=== PATIENT | male | born 1985 | race Caucasian/White ===

== ENCOUNTER 2016-11-30 21:17 | Emergency (ER) | payer OTHER ==
[~2016-11-30] VITALS: Ht 182.9 cm; Wt 102.9 kg
[~2016-11-30 21:17] MED LIST: HYDR-5688 PO; IBUP-1050 PO; KLN5X PO; TRAM-10 PO; WLLSR150 PO
[2016-11-30 21:20] VITALS: Ht 182.9 cm; Wt 102.9 kg
[2016-11-30] MEDS ORDERED: SODIUM CHLORIDE 0.9% 1000ML 2,000 ML IV STA (22:33)
[2016-11-30] MEDS ORDERED: ACET-1311 PO (22:40)
[2016-11-30] MEDS ORDERED: ONDANSETRON INJ 2 MG/ML 2 ML VIAL IV STA (22:45)
--- NOTE | 2016-11-30 22:56 | DIAGNOSTIC IMAGING REPORT ---
CHEST ONE VIEW PORTABLE CLINICAL HISTORY: Weakness, fever. Cold sweats. COMPARISON STUDY: 05/15/2016 FINDINGS: The heart is borderline enlarged. There are bibasilar opacities likely atelectatic although an inflammatory process could appear similar. There are postsurgical changes in the cervical spine. There are no pleural effusions there is no failure.[ IMPRESSION: Bibasilar opacities, likely atelectatic. If symptoms persist, a follow-up PA and lateral study is recommended. Electronically signed by: Chad Ricketts M.D. 11/30/2016 10:54 PM Dictated Date/Time: 11/30/2016 10:53 PM
[2016-11-30 22:59] VITALS: O2SAT 98
[2016-11-30] MEDS ORDERED: OPTIRAY 320 IV PRN (23:00)
[2016-11-30 23:01] LABS: URINE APPEARANCE CLEAR (CLEAR); URINE BILIRUBIN NEG (NEG); URINE COLOR YELLOW; URINE NITRITE NEG (NEG); URINE PH >= 9.0 (4.5-7.5); UROBILINOGEN NEG (NEG)
[2016-11-30 23:04] LABS: MANUAL MICROSCOPIC REQUIRED? NO; REVIEW REQ? NO
[2016-11-30 23:15] LABS: BASO % 0.3 %; BASO ABS # 0.03 K/uL (0-0.2); COMPLETE YES; HEMATOCRIT 43.3 % (42-52); IG% 0.2 %; LYMPH % 32.2 %; LYMPH ABS # 2.97 K/uL (1.2-3.4); MEAN CELL VOLUME 90.8 fL (80-100); MEAN CORPUSCULAR HEMOGLOBIN 31.7 pg (25-34); MEAN CORPUSCULAR HGB CONC 34.9 g/dl (32-36); MEAN PLATELET VOLUME 10.4 fL (7.4-10.4); MONO % 5.2 %; NEUT % 56.1 %; PLATELET COUNT 263 K/uL (130-400); RED BLOOD COUNT 4.77 M/uL (4.7-6.1); WHITE BLOOD COUNT 9.22 K/uL (4.8-10.8)
[2016-11-30 23:22] LABS: ISTAT CREATININE 0.8 mg/dl (0.6-1.3); ISTAT IONIZED CALCIUM 1.19 mmol/l (1.12-1.32)
[2016-11-30 23:38] LABS: ALT/SGPT 25 U/L (12-78); AST/SGOT 12 U/L (15-37); BLOOD UREA NITROGEN 9 mg/dl (7-18); BUN/CREATININE RATIO 10.2 (10-20); CALCIUM 9.3 mg/dl (8.5-10.1); CARBON DIOXIDE 28 mmol/L (21-32); CHLORIDE 104 mmol/L (98-107); CREATININE 0.86 mg/dl (0.60-1.40); GLUCOSE 81 mg/dl (70-99); MAGNESIUM 2.3 mg/dl (1.8-2.4); POTASSIUM 4.2 mmol/L (3.5-5.1); SODIUM 141 mmol/L (136-145)
[2016-11-30 23:41] LABS: ALKALINE PHOSPHATASE 69 U/L (45-117)
--- NOTE | 2016-12-01 00:15 | EMERGENCY ROOM VISIT NOTE ---
ED Visit Note First contact with patient: 22:20
[2016-12-01] MEDS ORDERED: KETOROLAC TROMETHAMINE 30 MG/ML VIAL IV STA (00:21)
[2016-12-01 00:32] VITALS: BP 149/91; PULSE 88; TEMP 36.9; O2SAT 98
--- NOTE | 2016-12-01 01:01 | EMERGENCY ROOM VISIT NOTE ---
History Report prepared by Lalito: Alie Roque Under the Supervision of: Aravind ObrienO. First contact with patient: 22:20 Chief Complaint: OTHER COMPLAINT Stated Complaint: FEVER,COLD SWEATS, COMPLETELY OUT OF IT History of Present Illness The patient is a 30 year old male who presents to the Emergency Room with complaints of worsening weakness for the past couple of days. He reports feeling disoriented and tired. His states that he is holding onto cottrell to stay upright when he walks and he is falling asleep standing up. The patient reports stabbing abdominal pain, nausea, and cold sweats. Yesterday he started experiencing burning and pain with urination. He has a history of UTIs but states that this feels different. Pt denies rhinorrhea, sore throat, headache, fevers, cough, chest pain, shortness of breath, vomiting, diarrhea, melena, and penile discharge. The patient sees a psychiatrist and missed his appointment in October. As a result he has run out of his prescriptions and has not taken his Wellbutrin or Klonopin at all this month. He has an appointment in 4 days with his psychiatrist. He denies SI or HI. Source of History: patient, spouse/significant other Onset: a coupld of days ago Position: other (global) Quality: other (weakness) Timing: worsening Modifying Factors (Worsening): other (not taking medications) Associated Symptoms: + abdominal pain, + fatigue, + nausea, + urinary symptoms, No SOB, No chest pain, No cough, No diarrhea, No fevers, No headache, No melena, No sorethroat, No vomiting Note: Pt feels disoriented. Pt denies SI or HI. Review of Systems See HPI for pertinent positives & negatives. A total of 10 systems reviewed and were otherwise negative. Past Medical & Surgical Medical Problems: (1) ANXIETY STATE NOS (2) ASTHMA, UNSPECIFIED, W (ACUTE) EXACERBATION (3) Bipolar II disorder (4) Chronic low back pain (5) Disc degeneration (6) DRUG ABUSE NEC-UNSPEC (7) LUMBAGO (8) POSTTRAUMATIC STRESS DISORDER (9) TOBACCO USE DISORDER Family History FH: cancer FH: lung disease Hypertension Social History Smoking Status: Current Every Day Smoker Alcohol Use: none Drug Use: none Marital Status: Housing Status: lives with family Occupation Status: employed Current/Historical Medications Scheduled Acetaminophen (Tylenol), 325 MG PO Q6 Bupropion HCl (Bupropion HCl Sr), 150 MG PO DAILY Scheduled PRN Clonazepam (Clonazepam), 0.5 MG PO TID PRN for Anxiety Tramadol (Ultram), 50-100 MG PO DAILY PRN for Pain Allergies Coded Allergies: BEE STING (Verified Allergy, Unknown, 11/30/16) Physical Exam Vital Signs Date Time Temp Pulse Resp B/P Pulse Ox O2 Delivery O2 Flow Rate FiO2 12/01/16 00:32 36.9 88 22 149/91 98 12/01/16 00:03 12/01/16 00:01 72 22 131/73 98 Room Air 78 133/88 88 149/91 11/30/16 22:59 98 Room Air 11/30/16 22:59 67 16 131/78 98 Room Air 11/30/16 22:59 98 Room Air 11/30/16 21:56 70 11/30/16 21:20 36.8 78 20 134/87 99 Room Air Physical Exam GENERAL: alert, sitting up in bed, disheveled, well appearing, well nourished, no distress, non-toxic EYE EXAM: normal conjunctiva, PERRL and EOM's intact OROPHARYNX: no exudate, no erythema, lips, buccal mucosa, and tongue normal and mucous membranes are moist NECK: supple, no nuchal rigidity, no adenopathy, non-tender LUNGS: Clear to auscultation. Normal chest wall mechanics HEART: no murmurs, S1 normal and S2 normal ABDOMEN: abdomen soft, mild diffuse tenderness, normo-active bowel sounds, no masses, no rebound or guarding. BACK: Back is symmetrical on inspection and there is no deformity, no midline tenderness, no CVA tenderness. SKIN: no rashes and no bruising UPPER EXTREMITIES: upper extremities are grossly normal. LOWER EXTREMITIES: No pitting edema. NEURO EXAM: Normal sensorium, cranial nerves II-XII intact, normal speech, no weakness of arms, no weakness of legs. No drift. Finger to nose intact. Gross sensation intact. PSYCH: Denies SI or HI. Medical Decision & Procedures ER Provider Diagnostic Interpretation: Radiology results as stated below per my review and radiologist interpretation: CHEST ONE VIEW PORTABLE CLINICAL HISTORY: Weakness, fever. Cold sweats. COMPARISON STUDY: 05/15/2016 FINDINGS: The heart is borderline enlarged. There are bibasilar opacities likely atelectatic although an inflammatory process could appear similar. There are postsurgical changes in the cervical spine. There are no pleural effusions there is no failure.[ IMPRESSION: Bibasilar opacities, likely atelectatic. If symptoms persist, a follow-up PA and lateral study is recommended. Electronically signed by: Chad Ricketts M.D. 11/30/2016 10:54 PM Dictated Date/Time: 11/30/2016 10:[address] HEAD: There is no evidence of acute intracranial hemorrhage, mass effect, or midline shift. Siddiqui-white differentiation is preserved. Visualized paranasal sinuses and mastoid air cells are clear. Calvarium is intact. Radiologist. Bassam Sotelo M.D. CT ABDOMEN & PELVIS: Comparison is made to CT dated 07/29/16. There is bibasilar subsegmental atelectasis. The liver, gallbladder, spleen, pancreas, adrenal glands, and kidneys are unremarkable. There is no evidence of bowel obstruction, acute appendicitis, or diverticulitis. There is no free fluid or free air. Urinary bladder and prostate are unremarkable. There are small bilateral fat-containing inguinal hernias. There are no acute osseous findings. Radiologist: Bassam Sotelo M.D. Laboratory Results 11/30/16 22:50 Red Blood Count 4.77, Mean Corpuscular Volume 90.8, Mean Corpuscular Hemoglobin 31.7, Mean Corpuscular Hemoglobin Concent 34.9, Mean Platelet Volume 10.4, Neutrophils (%) (Auto) 56.1, Lymphocytes (%) (Auto) 32.2, Monocytes (%) (Auto) 5.2, Eosinophils (%) (Auto) 6.0, Basophils (%) (Auto) 0.3, Neutrophils # (Auto) 5.17, Lymphocytes # (Auto) 2.97, Monocytes # (Auto) 0.48, Eosinophils # (Auto) 0.55, Basophils # (Auto) 0.03 11/30/16 22:50 Test 11/30/16 21:42 11/30/16 22:50 11/30/16 22:58 11/30/16 23:05 Urine Color YELLOW Urine Appearance CLEAR (CLEAR) Urine pH >= 9.0 (4.5-7.5) Urine Specific [place] 1.020 (1.000-1.030) Urine Protein NEG (NEG) Urine Glucose (UA) NEG (NEG) Urine Ketones NEG (NEG) Urine Occult Blood NEG (NEG) Urine Nitrite NEG (NEG) Urine Bilirubin NEG (NEG) Urine Urobilinogen NEG (NEG) Urine Leukocyte Esterase NEG (NEG) White Blood Count 9.22 K/uL (4.8-10.8) Red Blood Count 4.77 M/uL (4.7-6.1) Hemoglobin 15.1 g/dL (14.0-18.0) Hematocrit 43.3 % (42-52) Mean Corpuscular Volume 90.8 fL (80-100) Mean Corpuscular Hemoglobin 31.7 pg (25-34) Mean Corpuscular Hemoglobin Concent 34.9 g/dl (32-36) Platelet Count 263 K/uL (130-400) Mean Platelet Volume 10.4 fL (7.4-10.4) Neutrophils (%) (Auto) 56.1 % Lymphocytes (%) (Auto) 32.2 % Monocytes (%) (Auto) 5.2 % Eosinophils (%) (Auto) 6.0 % Basophils (%) (Auto) 0.3 % Neutrophils # (Auto) 5.17 K/uL (1.4-6.5) Lymphocytes # (Auto) 2.97 K/uL (1.2-3.4) Monocytes # (Auto) 0.48 K/uL (0.11-0.59) Eosinophils # (Auto) 0.55 K/uL (0-0.5) Basophils # (Auto) 0.03 K/uL (0-0.2) RDW Standard Deviation 43.4 fL (36.4-46.3) RDW Coefficient of Variation 13.0 % (11.5-14.5) Immature Granulocyte % (Auto) 0.2 % Immature Granulocyte # (Auto) 0.02 K/uL (0.00-0.02) Est Creatinine Clear Calc Drug Dose 157.3 ml/min Estimated GFR () 135.8 Estimated GFR (Non- 117.2 BUN/Creatinine Ratio 10.2 (10-20) Calcium Level 9.3 mg/dl (8.5-10.1) Magnesium Level 2.3 mg/dl (1.8-2.4) Total Bilirubin 0.4 mg/dl (0.2-1) Direct Bilirubin < 0.1 mg/dl (0-0.2) Aspartate Amino Transf (AST/SGOT) 12 U/L (15-37) Alanine Aminotransferase (ALT/SGPT) 25 U/L (12-78) Alkaline Phosphatase 69 U/L (45-117) Total Protein 7.4 gm/dl (6.4-8.2) Albumin 4.2 gm/dl (3.4-5.0) Bedside Glucose 88 mg/dl (70-99) Bedside Hemoglobin 15.0 g/dl (14.0-18.0) Bedside Hematocrit 44 % (42-52) Bedside Sodium 140 mEq/L (135-144) Bedside Potassium 4.1 mEq/L (3.3-5.0) Bedside Chloride 99 mEq/L (101-112) Bedside Total CO2 30 mEq/l (24-31) Anion Gap 16.0 mmol/L (16-25) Bedside Blood Urea Nitrogen 8 mg/dl (7-18) Bedside Creatinine 0.8 mg/dl (0.6-1.3) Bedside Glucose (other) 81 mg/dl (70-99) Bedside Ionized Calcium (Priscilla) 1.19 mmol/l (1.12-1.32) Laboratory results per my review. Medications Administered Medications (Trade) Dose Ordered Sig/Mariana Route Start Time Stop Time Status Last Admin Dose Admin Sodium Chloride (Nss 1000ml) 2,000 ml @ 999 mls/hr Q2H1M STAT IV 11/30/16 22:33 12/01/16 00:33 DC 11/30/16 23:04 999 MLS/HR Ondansetron HCl (Zofran Inj) 4 mg NOW STAT IV 11/30/16 22:45 11/30/16 22:46 DC 11/30/16 23:04 4 MG Ketorolac Tromethamine (Toradol Inj) 30 mg NOW STAT IV 12/01/16 00:21 12/01/16 00:22 DC 12/01/16 00:25 30 MG ECG Indication: weakness Rate (beats per minute): 64 Rhythm: normal sinus Findings: no ectopy, other (normal axis) ED Course ED COURSE: Vital signs were reviewed and showed normal vitals. The patients medical record was reviewed The above diagnostic studies were performed and reviewed. ED treatments and interventions as stated above. 2220: The patient was evaluated in room A11A. A complete history and physical examination was performed. 2233: NSS 2000 ml @ 999 mls/hr IV 2245: Zofran 4 mg IV 0021: Toradol 30 mg IV 0030: Upon reevaluation, the patient is feeling better and resting comfortably. I discussed my findings with the patient and he understands and agrees with the treatment plan. Based on the patients age, coexisting illnesses, exam and lab findings the decision to treat as an outpatient was made. The patient remained stable while under my care. The patient appeared well at the time of discharge. Medical Decision Differential Diagnosis includes but is not limited to dehydration, stroke, anemia, hypoglycemia, hyponatremia, hypernatremia, urinary tract infection, pneumonia, bronchitis, sepsis, gastroenteritis, additional abdominal pathology, metabolic abnormalities and infections. Patient is a 30-year-old male who presents the ER for nausea associated with abdominal pain. He notes that he has been fairly confused. He is oriented to person place and time. Labs show no significant leukocytosis or anemia. BMP along with LFTs, bilirubin are all unremarkable. UA was negative. Chest x-ray along with CT of the abdomen and pelvis and CT of the head was unremarkable. His neurologic exam was completely intact. He recently stop taking to psych medications as he ran out but he has an appointment on Sunday to get these refilled. Patient's exam was completely benign. He is discharged follow-up with his primary care doctor and his psychiatrist at his medication filled. Discussed with Pt concerning signs and symptoms to watch out for. Pt was instructed to follow up with their PCP and discussed with the patient their option to return to the ED at anytime for persistent or worsening symptoms. The appropriate anticipatory guidance and out-patient management, including indications for return to the emergency department, were explained at length to the patient and understood. Impression Primary Impression: Abdominal pain Additional Impression: Weakness Scribe Attestation The scribe's documentation has been prepared under my direction and personally reviewed by me in its entirety. I confirm that the note above accurately reflects all work, treatment, procedures, and medical decision making performed by me. Departure Information Dispostion Home / Self-Care Referrals No Doctor, Assigned (PCP) Forms HOME CARE DOCUMENTATION FORM, IMPORTANT VISIT INFORMATION, WORK / SCHOOL INSTRUCTIONS Patient Instructions Abdominal Pain - [facility], My [facility] Additional Instructions Please follow up with your primary care doctor with in the next 24 hours. Any worsening of your symptoms, please return to the ED immediately. This includes worsening pain, persistent nausea vomiting, diffuse rhythm 100.4, pulse 1 to harm herself or harming anybody else, or any other concerning signs or symptoms from your standpoint. CT of your head and abdomen pelvis were unremarkable. I do favor the lethargy is probably secondary to the withdrawal from your psychiatric medications which you have not been taking. Please follow-up with your psychiatrist for this. Problem Qualifiers Primary Impression: Abdominal pain Abdominal location: generalized Qualified Codes: R10.84 - Generalized abdominal pain
--- NOTE | 2016-12-01 07:03 | DIAGNOSTIC IMAGING REPORT ---
CT OF THE ABDOMEN AND PELVIS WITH CONTRAST CLINICAL HISTORY: Abdominal pain. COMPARISON STUDY: CT of the abdomen and pelvis July 29, 2016. TECHNIQUE: Following IV administration of 93 mL of Optiray-320, axial images of the abdomen and pelvis were obtained from the lung bases to the proximal femurs. Images were reviewed in the axial, sagittal, and coronal planes. IV contrast was administered without complication. CT DOSE: 1811.73 mGy.cm FINDINGS: Atelectasis is noted within visualized portions of the lungs. The liver, spleen, adrenal glands, kidneys and pancreas are normal. There is no hydronephrosis. No biliary or pancreatic ductal dilatation is present. There is no evidence for a bowel obstruction. The appendix is normal. No lymphadenopathy or ascites is present. There may be tiny fat-containing bilateral inguinal hernias. Skeletal structures are unremarkable. IMPRESSION: No acute process within the abdomen or pelvis. Normal appendix. Electronically signed by: Sanjeev Marcos M.D. 12/01/2016 7:01 AM Dictated Date/Time: 12/01/2016 6:58 AM
--- NOTE | 2016-12-01 07:18 | DIAGNOSTIC IMAGING REPORT ---
HEAD CT NONCONTRAST CT DOSE: HISTORY: EVALUATE WEAKNESS TECHNIQUE: Multiaxial CT images of the head were performed without the use of intravenous contrast. Automated exposure control was utilized for this study. Comparison: Head CT 12/28/2013. Findings: The paranasal sinuses and mastoid air cells are clear. The calvarium and skull base are intact. The ventricles and sulci are within normal limits. There is no mass, hematoma, midline shift, or acute infarct. Small exostosis along the outer table of the right occipital bone remain stable. Impression: No acute intracranial abnormality. Electronically signed by: Randolph Zavala M.D. 12/01/2016 7:16 AM Dictated Date/Time: 12/01/2016 7:14 AM
== END 2016-12-01 00:38 | disposition home or self-care (01) ==
LOC: C.EDB 21:18 → C.EDA 12-01 00:38
DX: R10.9 Unspecified abdominal pain (principal); R53.1 Weakness; R11.0 Nausea; J45.909 Unspecified asthma, uncomplicated; F17.200 Nicotine dependence, unspecified, uncomplicated; Z82.49 Family history of ischemic heart disease and other diseases of the circulatory system

== ENCOUNTER 2017-02-16 17:21 | Emergency (ER) | payer OTHER ==
[~2017-02-16] VITALS: Ht 182.9 cm; Wt 93.6 kg
[~2017-02-16 17:21] MED LIST changes: +ACET-1311 PO; -HYDR-5688 PO; -IBUP-1050 PO
[2017-02-16 17:26] VITALS: Ht 182.9 cm; Wt 93.6 kg
[2017-02-16] MEDS ORDERED: MTR600 PO (18:06)
[2017-02-16] MEDS ORDERED: SODIUM CHLORIDE 0.9% 1000ML 1,000 ML IV STA ×2 (18:12)
[2017-02-16] MEDS ORDERED: MoRPHine SULFATE 10 MG/ML CARP/VIAL IV STA (18:12)
[2017-02-16] MEDS ORDERED: ONDANSETRON INJ 2 MG/ML 2 ML VIAL IV STA (18:12)
[2017-02-16 18:44] LABS: URINE APPEARANCE CLEAR (CLEAR); URINE BILIRUBIN NEG (NEG); URINE COLOR DK YELLOW; URINE NITRITE NEG (NEG); URINE PH 8.5 (4.5-7.5); URINE SPECIFIC GRAVITY 1.019 (1.000-1.030); UROBILINOGEN NEG (NEG); ZZUR CULT IF INDIC CLEAN CATCH NO
[2017-02-16 18:45] LABS: MANUAL MICROSCOPIC REQUIRED? NO; REVIEW REQ? NO
[2017-02-16] MEDS ORDERED: MoRPHine SULFATE 2 MG/ML CARP ONE (19:01)
[2017-02-16] MEDS ORDERED: MoRPHine SULFATE 4 MG/ML 1 ML CARP\\VIAL ONE (19:02)
[2017-02-16 19:19] LABS: BASO % 0.2 %; BASO ABS # 0.03 K/uL (0-0.2); COMPLETE YES; EOS % 0.5 %; HEMATOCRIT 40.7 % (42-52); IG% 0.2 %; LYMPH % 6.6 %; LYMPH ABS # 0.93 K/uL (1.2-3.4); MEAN CELL VOLUME 84.3 fL (80-100); MEAN CORPUSCULAR HEMOGLOBIN 29.6 pg (25-34); MEAN CORPUSCULAR HGB CONC 35.1 g/dl (32-36); MEAN PLATELET VOLUME 10.5 fL (7.4-10.4); MONO % 5.2 %; NEUT % 87.3 %; PLATELET COUNT 222 K/uL (130-400); RED BLOOD COUNT 4.83 M/uL (4.7-6.1); WHITE BLOOD COUNT 14.02 K/uL (4.8-10.8)
[2017-02-16] MEDS ORDERED: OPTIRAY 320 IV PRN (19:30)
[2017-02-16 19:32] LABS: CALCIUM 8.9 mg/dl (8.5-10.1); CREATININE 0.83 mg/dl (0.60-1.40); POTASSIUM 3.7 mmol/L (3.5-5.1)
[2017-02-16 19:35] LABS: ALB/GLOB RATIO 0.9 (0.9-2)
--- NOTE | 2017-02-16 20:06 | DIAGNOSTIC IMAGING REPORT ---
CT ABD/PELVIS IV CONTRAST ONLY CLINICAL HISTORY: Right lower quadrant pain and fever and vomiting COMPARISON STUDY: 11/30/2016 TECHNIQUE: Following the IV administration of 116 mL of Optiray-320, CT scan of the abdomen and pelvis was performed from the lung bases to the proximal femurs. Images are reviewed in the axial, sagittal, and coronal planes. IV contrast was administered without complication. CT DOSE: 520.89 mGy.cm FINDINGS: Lower chest: There are minimal dependent atelectatic changes Liver: There is mild hepatic steatosis. No focal masses are visualized. There is no ductal dilatation. Portal veins appear patent. Gallbladder: Unremarkable. Spleen: Normal in size and attenuation. Pancreas: Unremarkable. Adrenal glands: Unremarkable. Kidneys: There is symmetric renal cortical enhancement. The kidneys are normal in size without hydronephrosis. Bowel: There are no transition zones indicate bowel obstruction. The appendix appears normal. There is no acute diverticulitis. Peritoneum: There is no intraperitoneal free air or abdominal ascites. There are small fat-containing inguinal hernias versus lipomatous inguinal canals Vasculature: The abdominal aorta is normal in course and caliber. Adenopathy: None. Pelvic viscera: The bladder, and pelvic viscera are unremarkable. Skeletal structures: There are bilateral proximal femoral bone islands IMPRESSION: 1. No acute findings 2. Normal appendix 3. No evidence of bowel obstruction. No evidence of free air. Electronically signed by: Chad Ricketts M.D. 02/16/2017 8:05 PM Dictated Date/Time: 02/16/2017 8:03 PM
[2017-02-16] MEDS ORDERED: ONDA4TAB10 SL (20:44)
[2017-02-16] MEDS ORDERED: ONDANSETRON HOME PACK 4MG OD TAB PO ONE (20:45)
--- NOTE | 2017-02-16 20:45 | EMERGENCY ROOM VISIT NOTE ---
History First contact with patient: 18:02 Chief Complaint: FEVER Stated Complaint: 104.5 FEVER, EXTREME PAIN IN RT HIP/STOMACH,VOMITI History of Present Illness The patient is a 31 year old male who presents to the Emergency Room with complaints of fevers, abdominal pain and difficulty urinating. The patient states that last night before bed, he was shaking and felt feverish. He reports that he woke up early this morning and had one episode of vomiting. He states that he developed a "stabbing" pain in his right lower abdomen. He also reports pain in the suprapubic region. The patient states that he feels a sensation of pressure in his lower abdomen and feels like his bladder is not fully emptying. He also reports mild dysuria and states he does have a history of urinary tract infection. The patient states his fever has been as high as 104.5F. He has taken ibuprofen and Tylenol. He reports nausea at this time. The patient denies any history of abdominal surgery. He denies any chest pain, shortness of breath, neck pain, headaches, body aches or back pain. Review of Systems A complete 10-point Review of Systems was discussed with the patient, with pertinent positives and negatives listed in the History of Present Illness. All remaining Review of Systems questions can be considered negative unless otherwise specified. Past Medical/Surgical History Medical Problems: (1) ANXIETY STATE NOS (2) ASTHMA, UNSPECIFIED, W (ACUTE) EXACERBATION (3) Bipolar II disorder (4) Chronic low back pain (5) Disc degeneration (6) DRUG ABUSE NEC-UNSPEC (7) LUMBAGO (8) POSTTRAUMATIC STRESS DISORDER (9) TOBACCO USE DISORDER Family History FH: cancer FH: lung disease Hypertension Social History Smoking Status: Current Every Day Smoker Alcohol Use: none Drug Use: none Marital Status: Housing Status: lives with family Occupation Status: employed Current/Historical Medications Scheduled Acetaminophen (Tylenol), 325 MG PO Q6 Bupropion HCl (Bupropion HCl Sr), 150 MG PO DAILY Ondasetron Odt (Zofran Odt), 4 MG SL Q6H Scheduled PRN Clonazepam (Clonazepam), 0.5 MG PO TID PRN for Anxiety Ibuprofen (Ibuprofen), 600 MG PO DIRECTED PRN for Fever Tramadol (Ultram), 50-100 MG PO DAILY PRN for Pain Allergies Coded Allergies: BEE STING (Verified Allergy, Unknown, 02/16/17) Physical Exam Vital Signs Date Time Temp Pulse Resp B/P Pulse Ox O2 Delivery O2 Flow Rate FiO2 02/16/17 21:11 38.2 94 18 120/61 96 02/16/17 20:39 94 18 120/61 96 Room Air 02/16/17 17:26 38.2 128 20 115/71 95 Room Air Physical Exam VITALS: Vitals are noted on the nurse's note and reviewed by myself. Vital signs stable. GENERAL: This is a 31-year-old male, in no acute distress, nondiaphoretic, well- developed well-nourished. SKIN: The skin was without rashes. HEAD: Normocephalic atraumatic. EARS: External auditory canals clear, tympanic membranes mildly erythematous bilaterally. EYES: Pupils equal round and reactive to light and accommodation. NOSE: Patent, turbinates without inflammation or discharge. MOUTH: Mucous membranes moist. Tonsils are not enlarged. Pharynx without erythema or exudate. NECK: Supple without nuchal rigidity. No lymphadenopathy. HEART: Regular rate and rhythm without murmurs gallops or rubs. LUNGS: Clear to auscultation bilaterally without wheezes, rales or rhonchi. ABDOMEN: Positive bowel sounds x 4. Soft, mild tenderness across the lower abdomen, especially in the suprapubic region. No guarding or rebound tenderness. MUSCULOSKELETAL: No tenderness of the lumbar spinous processes. No CVA tenderness. NEURO: Patient was alert and oriented to person place and time. Medical Decision & Procedures ER Provider Diagnostic Interpretation: CT ABD/PELVIS IV CONTRAST ONLY FINDINGS: Lower chest: There are minimal dependent atelectatic changes Liver: There is mild hepatic steatosis. No focal masses are visualized. There is no ductal dilatation. Portal veins appear patent. Gallbladder: Unremarkable. Spleen: Normal in size and attenuation. Pancreas: Unremarkable. Adrenal glands: Unremarkable. Kidneys: There is symmetric renal cortical enhancement. The kidneys are normal in size without hydronephrosis. Bowel: There are no transition zones indicate bowel obstruction. The appendix appears normal. There is no acute diverticulitis. Peritoneum: There is no intraperitoneal free air or abdominal ascites. There are small fat-containing inguinal hernias versus lipomatous inguinal canals Vasculature: The abdominal aorta is normal in course and caliber. Adenopathy: None. Pelvic viscera: The bladder, and pelvic viscera are unremarkable. Skeletal structures: There are bilateral proximal femoral bone islands IMPRESSION: 1. No acute findings 2. Normal appendix 3. No evidence of bowel obstruction. No evidence of free air. Laboratory Results 02/16/17 18:25 Red Blood Count 4.83, Mean Corpuscular Volume 84.3, Mean Corpuscular Hemoglobin 29.6, Mean Corpuscular Hemoglobin Concent 35.1, Mean Platelet Volume 10.5, Neutrophils (%) (Auto) 87.3, Lymphocytes (%) (Auto) 6.6, Monocytes (%) (Auto) 5.2, Eosinophils (%) (Auto) 0.5, Basophils (%) (Auto) 0.2, Neutrophils # (Auto) 12.23, Lymphocytes # (Auto) 0.93, Monocytes # (Auto) 0.73, Eosinophils # (Auto) 0.07, Basophils # (Auto) 0.03 02/16/17 18:25 Test 02/16/17 18:25 02/16/17 18:32 02/16/17 18:35 White Blood Count 14.02 K/uL (4.8-10.8) Red Blood Count 4.83 M/uL (4.7-6.1) Hemoglobin 14.3 g/dL (14.0-18.0) Hematocrit 40.7 % (42-52) Mean Corpuscular Volume 84.3 fL (80-100) Mean Corpuscular Hemoglobin 29.6 pg (25-34) Mean Corpuscular Hemoglobin Concent 35.1 g/dl (32-36) Platelet Count 222 K/uL (130-400) Mean Platelet Volume 10.5 fL (7.4-10.4) Neutrophils (%) (Auto) 87.3 % Lymphocytes (%) (Auto) 6.6 % Monocytes (%) (Auto) 5.2 % Eosinophils (%) (Auto) 0.5 % Basophils (%) (Auto) 0.2 % Neutrophils # (Auto) 12.23 K/uL (1.4-6.5) Lymphocytes # (Auto) 0.93 K/uL (1.2-3.4) Monocytes # (Auto) 0.73 K/uL (0.11-0.59) Eosinophils # (Auto) 0.07 K/uL (0-0.5) Basophils # (Auto) 0.03 K/uL (0-0.2) RDW Standard Deviation 38.6 fL (36.4-46.3) RDW Coefficient of Variation 12.6 % (11.5-14.5) Immature Granulocyte % (Auto) 0.2 % Immature Granulocyte # (Auto) 0.03 K/uL (0.00-0.02) Anion Gap 9.0 mmol/L (3-11) Est Creatinine Clear Calc Drug Dose 154.6 ml/min Estimated GFR () 136.8 Estimated GFR (Non- 118.1 BUN/Creatinine Ratio 10.0 (10-20) Calcium Level 8.9 mg/dl (8.5-10.1) Total Bilirubin 0.4 mg/dl (0.2-1) Aspartate Amino Transf (AST/SGOT) 10 U/L (15-37) Alanine Aminotransferase (ALT/SGPT) 22 U/L (12-78) Alkaline Phosphatase 79 U/L (45-117) Total Protein 7.6 gm/dl (6.4-8.2) Albumin 3.7 gm/dl (3.4-5.0) Globulin 3.9 gm/dl (2.5-4.0) Albumin/Globulin Ratio 0.9 (0.9-2) Lipase 60 U/L (73-393) Bedside Lactic Acid Venous 0.67 mmol/L (0.90-1.70) Urine Color DK YELLOW Urine Appearance CLEAR (CLEAR) Urine pH 8.5 (4.5-7.5) Urine Specific [place] 1.019 (1.000-1.030) Urine Protein NEG (NEG) Urine Glucose (UA) NEG (NEG) Urine Ketones TRACE (NEG) Urine Occult Blood NEG (NEG) Urine Nitrite NEG (NEG) Urine Bilirubin NEG (NEG) Urine Urobilinogen NEG (NEG) Urine Leukocyte Esterase NEG (NEG) Medications Administered Medications (Trade) Dose Ordered Sig/Mariana Route Start Time Stop Time Status Last Admin Dose Admin Sodium Chloride 1,000 ml @ 999 mls/hr Q1H1M STAT IV 02/16/17 18:12 02/16/17 19:12 DC 02/16/17 19:01 999 MLS/HR Sodium Chloride (Nss 1000ml) 1,000 ml @ 999 mls/hr Q1H1M STAT IV 02/16/17 18:12 02/16/17 19:12 DC 02/16/17 19:02 999 MLS/HR Ondansetron HCl (Zofran Inj) 4 mg NOW STAT IV 02/16/17 18:12 02/16/17 18:15 DC 02/16/17 19:02 4 MG Morphine Sulfate (MoRPHine SULFATE INJ) 2 mg STK-MED ONCE .ROUTE 02/16/17 19:01 02/16/17 19:02 DC 02/16/17 19:02 2 MG Morphine Sulfate (MoRPHine SULFATE INJ) 4 mg STK-MED ONCE .ROUTE 02/16/17 19:02 02/16/17 19:03 DC 02/16/17 19:03 4 MG Ondansetron HCl (ZOFRAN ODT 4MG Home Pack) 1 homepack UD ONCE PO 02/16/17 20:45 02/16/17 20:46 DC 02/16/17 20:40 1 HOMEPACK Medical Decision Differential diagnosis includes appendicitis, urinary tract infection, cholecystitis, pyelonephritis, flulike illness, gastroenteritis, colitis, diverticulitis, among others. The patient was evaluated as above. Labs were drawn and IV access was obtained. Imaging studies were performed and read by radiology as above. The patient was medicated with 2 L normal saline solution, 6 mg morphine IV and 4 mg Zofran IV. The patient was reassessed multiple times during their stay in the emergency department and remained in stable condition. The patient is a and 31-year-old male who presents today complaining of abdominal pain, fever and difficulty urinating. Labs revealed a leukocytosis of 14,000. No anemia or concerning electrolyte abnormalities. Urinalysis was not suggestive of infection. Kidney and liver functions were within normal limits. Due to the patient's fever and subjective abdominal pain, a CT scan of the abdomen and pelvis with IV contrast was performed. This was read by radiology and showed no acute infectious findings within the abdomen or pelvis. The patient's symptoms may be secondary to a viral illness. He did have mild tenderness on examination but certainly did not have a surgical abdomen. He did feel better after IV fluids, pain medication and antiemetics. He will be discharged home with a prescription for Zofran. He was instructed to return immediately with worsening of his current condition or any new/concerning symptoms. Based on the patient's presentation, lab results, and imaging studies, I feel the patient is stable for outpatient treatment. The patient's case was reviewed with Dr. Aguila, ED attending physician, who agreed with my assessment and treatment plan. Discharge instructions were reviewed with the patient. The patient verbalized understanding of my assessment and treatment plan and was discharged home in good condition. Impression Primary Impression: Febrile illness Additional Impression: Right lower quadrant abdominal pain Departure Information Dispostion Home / Self-Care Condition GOOD Prescriptions Ondasetron Odt (ZOFRAN ODT) 4 Mg Tab 4 MG SL Q6H for Nausea, #15 TAB Prov: Peggy Mccormick .RON 02/16/17 Referrals No Doctor, Assigned (PCP) Patient Instructions My [facility] Additional Instructions You have been treated in the Emergency Department your Abdominal Pain. Laboratory results and imaging studies have ruled out any emergent causes for your abdominal pain which would warrant admission or surgery. You have been prescribed Zofran to be used for any nausea or vomiting. Take as prescribed. For pain control, you can use the following [id number] medicines (if >12 yo): - Regular strength (325mg/tab) Tylenol (acetaminophen) 2 tabs every 4-6 hours as needed. Do not exceed 12 tablets in a 24 hour period. Avoid taking more than 4 grams (4000 mg) of Tylenol per day. This includes any other sources of acetaminophen you may take on a regular basis. - Regular strength (200 mg/tab) Advil (ibuprofen) 1-2 tabs every 4-6 hours as needed. Do not exceed a dose of 3200 mg per day. Drink plenty of water and stay well hydrated. As with any trip to the Emergency Department, you should follow-up with your Primary Care Provider from today's visit. Return to the emergency department if your symptoms persist despite treatment plan outlined above or if the following symptoms occur: Worsening abdominal pain , worsening vomiting, or any other new/concerning symptoms. Problem Qualifiers
[2017-02-16 21:11] VITALS: BP 120/61; PULSE 94; TEMP 38.2; O2SAT 96
== END 2017-02-16 21:13 | disposition home or self-care (01) ==
LOC: C.EDB 17:23 → C.EDA 21:13
DX: R50.9 Fever, unspecified (principal); R10.31 Right lower quadrant pain; F31.9 Bipolar disorder, unspecified; F41.9 Anxiety disorder, unspecified; J45.909 Unspecified asthma, uncomplicated; G89.29 Other chronic pain; F17.200 Nicotine dependence, unspecified, uncomplicated; Z91.030 Bee allergy status; Z80.9 Family history of malignant neoplasm, unspecified; Z82.49 Family history of ischemic heart disease and other diseases of the circulatory system

== ENCOUNTER 2017-04-17 00:56 | Emergency (ER) | payer OTHER ==
[~2017-04-17] VITALS: Ht 182.9 cm; Wt 98.0 kg
[~2017-04-17 00:56] MED LIST changes: +MTR600 PO; +ONDA4TAB10 SL
[2017-04-17 01:04] VITALS: TEMP 36.7; Ht 182.9 cm; Wt 98.0 kg
[2017-04-17] MEDS ORDERED: METOCLOPRAMIDE HCL INJ 5 MG/ML 2 ML VIAL IV STA (01:33)
[2017-04-17] MEDS ORDERED: KETOROLAC TROMETHAMINE 30 MG/ML VIAL IV STA (01:33)
[2017-04-17] MEDS ORDERED: DiphenhydrAMINE HCL 50 MG/ML VIAL IV STA (01:33)
[2017-04-17 01:52] LABS: BASO % 0.4 %; BASO ABS # 0.04 K/uL (0-0.2); COMPLETE YES; EOS % 7.3 %; HEMATOCRIT 41.5 % (42-52); IG% 0.2 %; LYMPH % 26.9 %; LYMPH ABS # 2.91 K/uL (1.2-3.4); MEAN CELL VOLUME 86.3 fL (80-100); MEAN CORPUSCULAR HEMOGLOBIN 27.7 pg (25-34); MEAN PLATELET VOLUME 9.6 fL (7.4-10.4); MONO % 6.7 %; NEUT % 58.5 %; PLATELET COUNT 292 K/uL (130-400); RED BLOOD COUNT 4.81 M/uL (4.7-6.1)
[2017-04-17 02:24] LABS: ALT/SGPT 30 U/L (12-78); AST/SGOT 16 U/L (15-37); BLOOD UREA NITROGEN 9 mg/dl (7-18); BUN/CREATININE RATIO 11.6 (10-20); CALCIUM 8.9 mg/dl (8.5-10.1); CARBON DIOXIDE 32 mmol/L (21-32); CHLORIDE 106 mmol/L (98-107); CREATININE 0.78 mg/dl (0.60-1.40); GLUCOSE 104 mg/dl (70-99); POTASSIUM 4.3 mmol/L (3.5-5.1); SODIUM 143 mmol/L (136-145)
[2017-04-17 02:35] LABS: ALKALINE PHOSPHATASE 68 U/L (45-117)
--- NOTE | 2017-04-17 02:59 | EMERGENCY ROOM VISIT NOTE ---
History First contact with patient: :09 Chief Complaint: EDEMA TO EXTREMITY Stated Complaint: BOTH LEGS SWOLLEN, PAINFUL, PINS AND NEEDLES History of Present Illness The patient is a 31 year old male who presents to the Emergency Room with complaints of bilateral lower leg pain and swelling for the past day. Patient states he feels as if his feet have pins and needles. Patient denies chest pain , dyspnea, cough, congestion, abdominal pain, recent illness, recent travel, lightheadedness or dizziness. He does smoke. No history DVT or PE. Review of Systems See HPI for pertinent positives & negatives. A total of 10 systems reviewed and were otherwise negative. Past Medical/Surgical History Medical Problems: (1) ANXIETY STATE NOS (2) ASTHMA, UNSPECIFIED, W (ACUTE) EXACERBATION (3) Bipolar II disorder (4) Chronic low back pain (5) Disc degeneration (6) DRUG ABUSE NEC-UNSPEC (7) LUMBAGO (8) POSTTRAUMATIC STRESS DISORDER (9) TOBACCO USE DISORDER Family History FH: cancer FH: lung disease Hypertension Social History Smoking Status: Current Every Day Smoker Alcohol Use: none Drug Use: none Marital Status: Housing Status: lives with family Occupation Status: employed Current/Historical Medications Scheduled Acetaminophen (Tylenol), 325 MG PO Q6 Bupropion HCl (Bupropion HCl Sr), 150 MG PO DAILY Ondasetron Odt (Zofran Odt), 4 MG SL Q6H Scheduled PRN Clonazepam (Clonazepam), 0.5 MG PO TID PRN for Anxiety Ibuprofen (Ibuprofen), 600 MG PO DIRECTED PRN for Fever Tramadol (Ultram), 50-100 MG PO DAILY PRN for Pain Allergies Coded Allergies: BEE STING (Verified Allergy, Unknown, 02/16/17) Physical Exam Vital Signs Date Time Temp Pulse Resp B/P Pulse Ox O2 Delivery O2 Flow Rate FiO2 04/17/17 01:04 36.7 95 18 120/70 98 Room Air Physical Exam VITALS: Vitals are noted on the nurse's note and reviewed by myself. Vital signs stable. GENERAL: White male, in no acute distress, nondiaphoretic, well-developed well- nourished. SKIN: The skin was without rashes, erythema, edema, or bruising. There is no tenting of the skin. Capillary reflex less than 2 seconds. HEAD: Normocephalic atraumatic. EARS: External auditory canals clear, tympanic membranes pearly lucia without erythema or effusion bilaterally. EYES: Pupils equal round and reactive to light and accommodation. Conjunctivae without injection, sclerae without icterus. Extraocular movements intact. NOSE: Patent, turbinates without inflammation or discharge. MOUTH: Mucous membranes moist. Pharynx without erythema or exudate. Uvula midline. Airway patent. Tongue does not deviate. NECK: Supple without nuchal rigidity. No lymphadenopathy. No thyromegaly. Cervical spine is nontender. No JVD. HEART: Regular rate and rhythm without murmurs gallops or rubs. LUNGS: Clear to auscultation bilaterally without wheezes, rales or rhonchi. No dullness to percussion. No retractions or accessory muscle use. ABDOMEN: Positive bowel sounds x 4. Normal tympanic percussion. Soft, nontender, without masses or organomegaly. White sign negative. No guarding or rebound tenderness. MUSCULOSKELETAL: No muscle atrophy, erythema, noted. + Pitting edema up to the mid tib-fib bilaterally. Pedal pulses +2 equal present bilaterally. NEURO: Patient was alert and oriented to person place and time. Normal sensation to light and sharp touch. No focal neurological deficits. Medical Decision & Procedures Laboratory Results 04/17/17 01:44 Red Blood Count 4.81, Mean Corpuscular Volume 86.3, Mean Corpuscular Hemoglobin 27.7, Mean Corpuscular Hemoglobin Concent 32.0, Mean Platelet Volume 9.6, Neutrophils (%) (Auto) 58.5, Lymphocytes (%) (Auto) 26.9, Monocytes (%) (Auto) 6.7, Eosinophils (%) (Auto) 7.3, Basophils (%) (Auto) 0.4, Neutrophils # (Auto) 6.32, Lymphocytes # (Auto) 2.91, Monocytes # (Auto) 0.72, Eosinophils # (Auto) 0.79, Basophils # (Auto) 0.04 04/17/17 01:44 Test 04/17/17 01:44 White Blood Count 10.80 K/uL (4.8-10.8) Red Blood Count 4.81 M/uL (4.7-6.1) Hemoglobin 13.3 g/dL (14.0-18.0) Hematocrit 41.5 % (42-52) Mean Corpuscular Volume 86.3 fL (80-100) Mean Corpuscular Hemoglobin 27.7 pg (25-34) Mean Corpuscular Hemoglobin Concent 32.0 g/dl (32-36) Platelet Count 292 K/uL (130-400) Mean Platelet Volume 9.6 fL (7.4-10.4) Neutrophils (%) (Auto) 58.5 % Lymphocytes (%) (Auto) 26.9 % Monocytes (%) (Auto) 6.7 % Eosinophils (%) (Auto) 7.3 % Basophils (%) (Auto) 0.4 % Neutrophils # (Auto) 6.32 K/uL (1.4-6.5) Lymphocytes # (Auto) 2.91 K/uL (1.2-3.4) Monocytes # (Auto) 0.72 K/uL (0.11-0.59) Eosinophils # (Auto) 0.79 K/uL (0-0.5) Basophils # (Auto) 0.04 K/uL (0-0.2) RDW Standard Deviation 43.2 fL (36.4-46.3) RDW Coefficient of Variation 13.5 % (11.5-14.5) Immature Granulocyte % (Auto) 0.2 % Immature Granulocyte # (Auto) 0.02 K/uL (0.00-0.02) Anion Gap 5.0 mmol/L (3-11) Est Creatinine Clear Calc Drug Dose 168.0 ml/min Estimated GFR () 140.4 Estimated GFR (Non- 121.1 BUN/Creatinine Ratio 11.6 (10-20) Calcium Level 8.9 mg/dl (8.5-10.1) Magnesium Level 2.0 mg/dl (1.8-2.4) Total Bilirubin 0.3 mg/dl (0.2-1) Direct Bilirubin < 0.1 mg/dl (0-0.2) Aspartate Amino Transf (AST/SGOT) 16 U/L (15-37) Alanine Aminotransferase (ALT/SGPT) 30 U/L (12-78) Alkaline Phosphatase 68 U/L (45-117) Total Protein 7.2 gm/dl (6.4-8.2) Albumin 3.7 gm/dl (3.4-5.0) Thyroid Stimulating Hormone (TSH) 3.690 uIu/ml (0.300-4.500) Medications Administered Medications (Trade) Dose Ordered Sig/Mariana Route Start Time Stop Time Status Last Admin Dose Admin Ketorolac Tromethamine (Toradol Inj) 30 mg NOW STAT IV 04/17/17 01:33 04/17/17 01:35 DC 04/17/17 01:45 30 MG Metoclopramide HCl (Reglan Inj) 10 mg NOW STAT IV 04/17/17 01:33 04/17/17 01:35 DC 04/17/17 01:45 10 MG Diphenhydramine HCl (Benadryl Inj) 25 mg NOW STAT IV 04/17/17 01:33 04/17/17 01:36 DC 04/17/17 01:45 25 MG ED Course Prior records reviewed and summarized above. Triage Nursing notes reviewed. Additional history obtained from the family. The patient's history was concerning for swelling and pain in the leg. Differential diagnosis: Etiologies such as DVT, musculoskeletal, infection, joint effusion, trauma, lymphedema, idiopathic, CHF, as well as others were entertained.. Physical examination: The physical examination revealed no signs of infection. Neurovascularly intact. ER treatment provided: Toradol On reassessment the patient felt better. Diagnostics interpreted by me: The labs revealed mild anemia. No leukocytosis Imaging studies: Ultrasound negative for DVT Chest x-ray with no acute consolidation, pneumothorax or free air per my interpretation This appears to be consistent with lower extremity edema most likely from venous insufficiency. Patient was fitted with MICHAEL hose. No DVT. Unremarkable workup as above except mild anemia. He was advised to follow-up family care in a few days or here in the ER sooner for chest pain, difficulty breathing, numbness, tingling, worsening signs or symptoms or as needed. By the evaluation outlined above emergent etiologies such as DVT, septic joint, trauma , infection, CHF, as well as others were deemed relatively unlikely. The pt informed about the findings as listed above. All questions were answered and pleased with the treatment. Return instructions were outlined and the patient was discharged in stable condition. Outpatient prescription management: michael hose Referral: The patient was referred back to their primary care physician for follow-up in 2 to 3 days for a recheck of the current condition. Case reviewed with my attending Medical Decision As above Impression Primary Impression: Bilateral lower extremity edema Departure Information Dispostion Home / Self-Care Condition GOOD Referrals No Doctor, Assigned (PCP) Patient Instructions My [facility] [employer] Additional Instructions Wear MICHAEL hose throughout the day. Elevate your legs. Ibuprofen(Motrin, Advil) may be used for fever or pain. Use 600mg every six hours as needed. Take with food. Avoid using more than 2400mg in a 24 hour period. Do not use 2400mg per day for more than three consecutive days without physician direction. Prolonged inappropriate use can lead to stomach upset or ulcers. (AND/OR) Acetaminophen(Tylenol) may be used for fever or pain. Use 1000mg every six hours as needed. Avoid using more than 3000mg in a 24 hour period. Rest and drink plenty of fluids as tolerated. Continue current medications. Avoid strenuous activities and anything that worsens your pain. Resume normal activities once your symptoms resolve. Return to the ER immediately for abdominal pain, vomiting, fevers, chest pains , difficulty breathing, worsening of your condition, or as needed. Follow up with your primary physician in 2-3 days for a recheck of your current condition.
[2017-04-17 03:10] VITALS: BP 112/65; PULSE 79; O2SAT 96
--- NOTE | 2017-04-17 07:04 | DIAGNOSTIC IMAGING REPORT ---
CHEST ONE VIEW PORTABLE CLINICAL HISTORY: Atypical chest pain. Leg swelling. COMPARISON STUDY: 11/30/2016 FINDINGS: The heart is normal in size. There is no failure. There is been improvement in the previous identified left basal airspace opacities, likely atelectatic. There is been resolution of the right basal airspace opacities. There are no pleural effusions. Postsurgical changes are present within the cervical spine.[ IMPRESSION: Improving aeration of the lung bases. No evidence of failure. No evidence of acute parenchymal consolidation Electronically signed by: Chad Ricketts M.D. 04/17/2017 7:03 AM Dictated Date/Time: 04/17/2017 7:02 AM
--- NOTE | 2017-04-17 07:10 | DIAGNOSTIC IMAGING REPORT ---
BILATERAL LOWER EXTREMITY VENOUS DOPPLER HISTORY: leg swelling COMPARISON STUDY: None. FINDINGS: There is normal compressibility, flow, and augmentation within the bilateral lower extremity deep venous systems. Slightly prominent bilateral inguinal lymph nodes which measure up to 1.6 cm in short axis diameter. IMPRESSION: No DVT within the right or left lower extremity. Prominent bilateral inguinal lymph nodes. Electronically signed by: Randolph Zavala M.D. 04/17/2017 7:09 AM Dictated Date/Time: 04/17/2017 7:08 AM
== END 2017-04-17 03:20 | disposition home or self-care (01) ==
LOC: C.EDB 01:00
DX: M79.604 Pain in right leg (principal); M79.605 Pain in left leg; F31.81 Bipolar II disorder; F41.9 Anxiety disorder, unspecified; G89.29 Other chronic pain; F17.200 Nicotine dependence, unspecified, uncomplicated; J45.909 Unspecified asthma, uncomplicated; Z79.899 Other long term (current) drug therapy; Z91.030 Bee allergy status; Z82.49 Family history of ischemic heart disease and other diseases of the circulatory system; Z80.9 Family history of malignant neoplasm, unspecified

== ENCOUNTER 2017-05-24 11:59 | Emergency (ER) | payer SELFPAY ==
[~2017-05-24] VITALS: Ht 182.9 cm; Wt 96.0 kg
[~2017-05-24 11:59] MED LIST changes: -ACET-1311 PO; -MTR600 PO; -ONDA4TAB10 SL
[2017-05-24 12:02] VITALS: TEMP 36.9; Ht 182.9 cm; Wt 96.0 kg
[2017-05-24] MEDS ORDERED: ONDANSETRON 4MG OD TAB PO STA (12:10)
[2017-05-24] MEDS ORDERED: IBUPROFEN 800 MG TAB PO STA (12:10)
[2017-05-24] MEDS ORDERED: OXYCODONE HCL IR 5 MG TAB (IMMEDIATE RELEASE) PO STA (12:10)
--- NOTE | 2017-05-24 12:33 | EMERGENCY ROOM VISIT NOTE ---
History Report prepared by Lalito: Dyana Christianson Under the Supervision of: Dr. Nils Aguila M.D. First contact with patient: 12:05 Chief Complaint: TESTICULAR PAIN Stated Complaint: RIGHT TESTICLE PAIN Nursing Triage Summary: right sided testicular pain that started today and pain goes into abd History of Present Illness The patient is a 31 year old male who presents to the Emergency Room with complaints of worsening right-sided testicular pain that started a couple days ago. He states that it feels like "someone is squeezing his right testicle or his right testicle is in a vice." He rates his discomfort as an 8.5/10 in severity. The patient is also experiencing pain when urinating, but denies any burning. The patient has been taking Tylenol and ibuprofen for his pain without any relief. The patient last took Tylenol around 0630. The patient is also experiencing nausea. He denies fevers, back pain, and testicular edema. The patient also denies any recent testicular trauma or any history of testicular surgery. The patient thinks that he has had epididymitis in the past. He denies any personal history of kidney stones, but he states that he has a family history of kidney stones. The patient adds that his grandfather had testicular cancer. Source of History: patient Onset: a couple days ago Position: other (right testicle) Symptom Intensity: 8.5/10 Quality: other ("someone is squeezing his right testicle or his right testicle is in a vice") Timing: worsening Modifying Factors (Relieving): other (None) Associated Symptoms: + nausea, + urinary symptoms (pain with urinating, no burning), No fevers, No back pain Note: no testicular edema Review of Systems See HPI for pertinent positives & negatives. A total of 10 systems reviewed and were otherwise negative. Past Medical & Surgical Medical Problems: (1) ANXIETY STATE NOS (2) ASTHMA, UNSPECIFIED, W (ACUTE) EXACERBATION (3) Bipolar II disorder (4) Chronic low back pain (5) Disc degeneration (6) DRUG ABUSE NEC-UNSPEC (7) LUMBAGO (8) POSTTRAUMATIC STRESS DISORDER (9) TOBACCO USE DISORDER Family History FH: cancer FH: lung disease Hypertension Social History Smoking Status: Current Every Day Smoker Alcohol Use: none Drug Use: none Marital Status: Housing Status: lives with family Occupation Status: employed Current/Historical Medications Scheduled Doxycycline Hyclate (Vibramycin), 100 MG PO BID Scheduled PRN Oxycodone Ir (Roxicodone Ir), 1-2 TAB PO Q4H PRN for Pain Allergies Coded Allergies: BEE STING (Verified Allergy, Unknown, 05/24/17) Physical Exam Vital Signs Date Time Temp Pulse Resp B/P (MAP) Pulse Ox O2 Delivery O2 Flow Rate FiO2 05/24/17 13:48 71 18 163/71 96 05/24/17 12:02 36.9 75 16 143/84 97 Physical Exam GENERAL: Patient is in no acute distress. HEENT: No acute trauma, normocephalic atraumatic, mucous membranes moist, no nasal congestion, no scleral icterus. NECK: No stridor, no adenopathy, no meningismus, trachea is midline. LUNGS: Clear to auscultation bilaterally, no wheeze, no rhonchi, breath sounds equal. HEART: Without murmurs gallops or rubs, regular rate and rhythm. ABDOMEN: Soft, nontender, bowel sounds positive, no hernias, no peritonitis. EXTREMITIES: No cyanosis or edema, full range of motion of all the joints without pain or difficulty, no signs for acute trauma. GROIN: Circumcised, normal sized testicles, no cellulitis, no obvious hernia, right testicle diffusely tender to palpation. NEUROLOGIC: Oriented x 3, no acute motor or sensory deficits, no focal weakness. SKIN: No rash, no jaundice, no diaphoresis. Medical Decision & Procedures ER Provider Diagnostic Interpretation: Radiology results as stated below per my review and radiologist interpretation: ULTRASOUND TESTES AND SCROTUM FINDINGS: The testes are normal in size and homogeneous in echotexture. The right testis measures 4.9 x 2.4 x 3.3 cm and the left testis measures 4.4 x 2.5 x 3.2 cm. No intratesticular mass is seen. Testicular blood flow is normal and symmetric. Normal Doppler waveforms are identified in both testes. The epididymal heads are normal in appearance. The right epididymal head measures 1.2 cm in length and the left epididymal head measures 1.0 cm in length. No varicocele or hydrocele is seen. IMPRESSION: No acute scrotal abnormality is identified. Electronically signed by: Nils Mayberry M.D. 05/24/2017 12:57 PM Dictated Date/Time: 05/24/2017 12:56 PM Laboratory Results Test 05/24/17 12:25 Urine Color YELLOW Urine Appearance CLEAR (CLEAR) Urine pH 7.0 (4.5-7.5) Urine Specific [place] 1.023 (1.000-1.030) Urine Protein NEG (NEG) Urine Glucose (UA) NEG (NEG) Urine Ketones NEG (NEG) Urine Occult Blood NEG (NEG) Urine Nitrite NEG (NEG) Urine Bilirubin NEG (NEG) Urine Urobilinogen NEG (NEG) Urine Leukocyte Esterase NEG (NEG) Laboratory results reviewed by me. Medications Administered Medications (Trade) Dose Ordered Sig/Mariana Route Start Time Stop Time Status Last Admin Dose Admin Ibuprofen (Motrin Tab) 800 mg NOW STAT PO 05/24/17 12:10 05/24/17 12:14 DC 05/24/17 12:19 800 MG Oxycodone HCl (Roxicodone Immediate Rel Tab) 10 mg NOW STAT PO 05/24/17 12:10 05/24/17 12:14 DC 05/24/17 12:20 10 MG Ondansetron HCl (Zofran Odt) 4 mg NOW STAT PO 05/24/17 12:10 05/24/17 12:14 DC 05/24/17 12:19 4 MG Ceftriaxone Sodium (Rocephin Im) 500 mg NOW ONCE IM 05/24/17 13:15 05/24/17 13:16 DC 05/24/17 13:32 500 MG Doxycycline Hyclate (Vibramycin Cap) 100 mg NOW STAT PO 05/24/17 13:12 05/24/17 13:13 DC 05/24/17 13:32 100 MG ED Course 1208: The patient was evaluated in room C2. A complete history and physical exam was performed. 1210: Ordered Zofran Odt 4 mg PO, Oxycodone HCl 10 mg PO, Ibuprofen 800 mg PO 1312: Ordered Vibramycin Cap 100 mg PO 1315: Ordered Rocephin Im 500 mg IM 1318: Reevaluated the patient. Discussed results and discharge instructions: he verbalized understanding and agreement. The patient is ready for discharge. Medical Decision Differential diagnoses considered include testicular torsion, testicular mass, hernia, epididymitis, UTI, renal colic. Medication Reconciliation: I attest that I have personally reviewed the patient' s current medication list. Blood Pressure Screening: Patient was found to have an elevated blood pressure and was referred to their primary doctor for recheck and further treatment. The patient presents with right testicular discomfort. Urinalysis does not show infection or hematuria. Testicular ultrasound does not show any mass, there is no hernia, no evidence for testicular torsion. The right testicle was not felt to be significantly enlarged by ultrasound. The patient does not have cellulitis by exam. He may have an early epididymitis I suppose. He was given oral doxycycline and IM ceftriaxone. He is being discharged to continue the doxycycline as an outpatient. During his ER stay, he received oxycodone for pain. This was given orally. He received oral Zofran and oral Motrin. He was discharged home. [place] Drug Monitoring Program Search Results: patient reviewed within database, no issues identified Impression Primary Impression: Right testicular pain Scribe Attestation The scribe's documentation has been prepared under my direction and personally reviewed by me in its entirety. I confirm that the note above accurately reflects all work, treatment, procedures, and medical decision making performed by me. Departure Information Dispostion Home / Self-Care Prescriptions Doxycycline Hyclate (VIBRAMYCIN) 100 Mg Cap 100 MG PO BID for 14 Days, #28 CAP Prov: Nils Aguila M.D. 05/24/17 Oxycodone Ir (Roxicodone Ir) 5 Mg Tab 1-2 TAB PO Q4H Y for Pain, #10 TAB Prov: Nils Aguila M.D. 05/24/17 Referrals No Doctor, Assigned (PCP) Forms HOME CARE DOCUMENTATION FORM, IMPORTANT VISIT INFORMATION, WORK / SCHOOL INSTRUCTIONS Patient Instructions My [facility] Additional Instructions doxycycline 2x per day for 14 days motrin/tylenol for pain supportive underwear as discussed talk to your doctor about seeing urology return if worsening testing today was all ok oxy ir 1 tab every 4 hours for severe pain
[2017-05-24 12:49] LABS: URINE APPEARANCE CLEAR (CLEAR); URINE BILIRUBIN NEG (NEG); URINE COLOR YELLOW; URINE NITRITE NEG (NEG); URINE SPECIFIC GRAVITY 1.023 (1.000-1.030); UROBILINOGEN NEG (NEG)
[2017-05-24 12:55] LABS: MANUAL MICROSCOPIC REQUIRED? NO; REVIEW REQ? NO
--- NOTE | 2017-05-24 12:58 | DIAGNOSTIC IMAGING REPORT ---
ULTRASOUND TESTES AND SCROTUM CLINICAL HISTORY: Right testicular pain. COMPARISON STUDY: Scrotal ultrasound dated 07/29/2016. TECHNIQUE: Real-time, grayscale, and color Doppler sonography of the testes and scrotum is performed. Images are reviewed in the transverse and longitudinal planes. FINDINGS: The testes are normal in size and homogeneous in echotexture. The right testis measures 4.9 x 2.4 x 3.3 cm and the left testis measures 4.4 x 2.5 x 3.2 cm. No intratesticular mass is seen. Testicular blood flow is normal and symmetric. Normal Doppler waveforms are identified in both testes. The epididymal heads are normal in appearance. The right epididymal head measures 1.2 cm in length and the left epididymal head measures 1.0 cm in length. No varicocele or hydrocele is seen. IMPRESSION: No acute scrotal abnormality is identified. Electronically signed by: Nils Mayberry M.D. 05/24/2017 12:57 PM Dictated Date/Time: 05/24/2017 12:56 PM
[2017-05-24] MEDS ORDERED: DOXYCYCLINE HYCLATE 100 MG CAP PO STA (13:12)
[2017-05-24] MEDS ORDERED: CEFTRIAXONE SOD 350MG/ML 1 GM VIAL IM ONE (13:15)
[2017-05-24] MEDS ORDERED: DOXY100C PO (13:35)
[2017-05-24] MEDS ORDERED: OXYC1TAB3 PO (13:35)
[2017-05-24 13:48] VITALS: BP 163/71; PULSE 71; O2SAT 96
== END 2017-05-24 13:48 | disposition home or self-care (01) ==
LOC: C.EDB 12:00 → C.EDC 13:48
DX: N50.811 Right testicular pain (principal); F31.81 Bipolar II disorder; J45.909 Unspecified asthma, uncomplicated; F41.9 Anxiety disorder, unspecified; F17.200 Nicotine dependence, unspecified, uncomplicated; Z91.030 Bee allergy status; Z80.9 Family history of malignant neoplasm, unspecified; Z82.49 Family history of ischemic heart disease and other diseases of the circulatory system

== ENCOUNTER 2017-08-20 17:40 | Emergency (ER) | payer SELFPAY ==
[~2017-08-20] VITALS: Ht 182.9 cm; Wt 96.3 kg
[~2017-08-20 17:40] MED LIST changes: -KLN5X PO; +OXYC1TAB3 PO; -TRAM-10 PO; -WLLSR150 PO
[2017-08-20 17:43] VITALS: TEMP 36.9; Ht 182.9 cm; Wt 96.3 kg
[2017-08-20] MEDS ORDERED: SODIUM CHLORIDE 0.9% 1000ML 1,000 ML IV STA (17:54)
[2017-08-20] MEDS ORDERED: PROMETHAZINE HCL INJ 25 MG in SODIUM CHLORIDE 0.9% 50ML 50 ML IV STA (17:54)
--- NOTE | 2017-08-20 17:55 | EMERGENCY ROOM VISIT NOTE ---
History Report prepared by Scribe: Alma Perkins Under the Supervision of: Dr. Alejandro Romero D.O. First contact with patient: 17:48 Chief Complaint: HEADACHE Stated Complaint: DOUBLE VISION, MIGRAIN History of Present Illness The patient is a 31 year old male who presents to the Emergency Room with complaints of a persistent headache that started this morning. He reports his vision had been "off" for the past 4 days and he woke up this morning with what he describes as a "migraine headache". He has experienced double vision and nausea. He has not vomited. He denies seeing any "black spots" in his eyes. He notes he just got back from vacation and has not followed up with anyone yet. He denies any trauma or injuries while on vacation. He rates his current pain as a 7.5/10 in severity. Ibuprofen has provided minimal relief. He denies any recent fevers, chills, weakness in the arms or legs. The patient states he takes no daily medications. He has undergone back surgery and ACL repair in the past. He has no medication allergies. Source of History: patient Onset: this morning Position: head Symptom Intensity: 7.5/10 Timing: other (persistent) Modifying Factors (Relieving): ibuprofen Associated Symptoms: + nausea, No fevers, No chills, No vomiting Review of Systems See HPI for pertinent positives & negatives. A total of 10 systems reviewed and were otherwise negative. Past Medical & Surgical Medical Problems: (1) ANXIETY STATE NOS (2) ASTHMA, UNSPECIFIED, W (ACUTE) EXACERBATION (3) Bipolar II disorder (4) Chronic low back pain (5) Disc degeneration (6) DRUG ABUSE NEC-UNSPEC (7) LUMBAGO (8) POSTTRAUMATIC STRESS DISORDER (9) TOBACCO USE DISORDER Surgical Problems: (1) History of back surgery (2) History of repair of anterior cruciate ligament of left knee Family History FH: cancer FH: lung disease Hypertension Social History Smoking Status: Current Every Day Smoker Alcohol Use: none Drug Use: none Marital Status: Housing Status: lives with family Occupation Status: employed Current/Historical Medications No Active Prescriptions or Reported Meds Allergies Coded Allergies: BEE STING (Verified Allergy, Unknown, 08/20/17) Physical Exam Vital Signs Date Time Temp Pulse Resp B/P (MAP) Pulse Ox O2 Delivery O2 Flow Rate FiO2 08/20/17 22:14 72 20 134/72 98 Room Air 08/20/17 21:37 74 20 133/75 97 Room Air 08/20/17 19:56 60 20 134/67 98 Room Air 08/20/17 19:03 60 136/64 97 Room Air 08/20/17 18:24 70 08/20/17 17:43 36.9 92 16 141/87 97 Room Air Physical Exam GENERAL: Patient is awake and alert, mildly anxious and uncomfortable appearing EYES: The conjunctivae are clear. The pupils are round and reactive. EARS, NOSE, MOUTH AND THROAT: The nose is without any evidence of any deformity. Mucous membranes are moist tongue is midline NECK: The neck is nontender and supple. RESPIRATORY: Normal respiratory effort is noted there is no evidence of wheezing rhonchi or rales CARDIOVASCULAR: Regular rate and rhythm noted there no murmurs rubs or gallops normal S1 normal S2 GASTROINTESTINAL: The abdomen is soft. Bowel sounds are present in all quadrants. Abdomen is nontender MUSCULOSKELETAL/EXTREMITIES: There is no evidence of gross deformity full range of motion is noted in the hips and shoulders SKIN: There is no obvious evidence of any rash. There are no petechiae, pallor or cyanosis noted. NEUROLOGIC: Patient is awake alert and oriented x3 strength is symmetric patellar reflexes are 2+ bilaterally Medical Decision & Procedures ER Provider Diagnostic Interpretation: Radiology results as stated below per my review and radiologist interpretation: HEAD WITHOUT CONTRAST (CT) CLINICAL HISTORY: 31 years-old Male with ROY and diplopia. Acute headache and diplopia. TECHNIQUE: Multiple axial CT images of the head were obtained without contrast. A dose lowering technique was utilized adhering to the principles of ALARA. CT DOSE: 601.98 mGy.cm COMPARISON: CT head 11/30/2016. FINDINGS: No acute intracranial hemorrhage, midline shift, mass, large territorial ischemia or abnormal extra-axial collection. The calvarium is intact. The mastoid air cells, and middle ear cavities are clear. There is mild ethmoid sinus disease. There is suggested disconjugate gaze. IMPRESSION: 1. No acute intracranial abnormality. 2. Suggested disconjugate gaze. 3. Mild ethmoid sinus disease. The above report was generated using voice recognition software. It may contain grammatical, syntax or spelling errors. Electronically signed by: Ronaldo Bryant M.D. 08/20/2017 6:42 PM MRI OF THE BRAIN WITHOUT AND WITH IV CONTRAST CLINICAL HISTORY: Headache and diplopia. COMPARISON STUDY: Head CT November 30, 2016 and August 20, 2017. TECHNIQUE: Utilizing a 1.5 Sheila magnet and dedicated coil, multiplanar, multiecho imaging of the brain was performed pre and postcontrast administration. IV administration of 9.5 mL of Gadavist contrast was uneventful. FINDINGS: There are no areas of restricted diffusion. No acute intracranial hemorrhage, midline shift or mass effect is present. Study is mildly compromised by motion artifact. No intracranial mass or pathologic enhancement is identified. Ventricular system is normal. Basilar cisterns are patent. Flow-voids for the major intracranial vessels are present. No areas of parenchymal signal abnormality is evident. The orbits are unremarkable. There is no fluid within the mastoid air cells. There is mild mucosal thickening of the sinuses. IMPRESSION: Unremarkable MRI of the brain. Electronically signed by: Sanjeev Marcos M.D. 08/20/2017 9:43 PM MRA OF THE INTRACRANIAL CIRCULATION WITHOUT CONTRAST CLINICAL HISTORY: Headache with diplopia. COMPARISON STUDY: Head CT performed earlier today. TECHNIQUE: Utilizing a 1.5 Sheila magnet and 3-D [id number] technique, unenhanced MRA of the intracranial circulation was obtained. FINDINGS: This exam is mildly compromised by motion artifact. No abrupt vessel cut off is identified. The bilateral M1, M2, A1 and A2 segments are patent. There is an anterior communicating artery and bilateral posterior communicating arteries. Posterior circulation is intact. No intracranial aneurysm is identified although sensitivity for detection of small aneurysms is diminished on this exam. IMPRESSION: 1. Unremarkable MRA of the intracranial circulation. 2. No aneurysm identified although sensitivity for detection of small aneurysms diminished given mild motion artifact. 3. Apparent intracranial vascular irregularity which is likely artifactual. Electronically signed by: Sanjeev Marcos M.D. 08/20/2017 9:48 PM Laboratory Results 08/20/17 18:05 Red Blood Count 5.20, Mean Corpuscular Volume 86.3, Mean Corpuscular Hemoglobin 31.0, Mean Corpuscular Hemoglobin Concent 35.9, Mean Platelet Volume 10.5, Neutrophils (%) (Auto) 58.1, Lymphocytes (%) (Auto) 31.8, Monocytes (%) (Auto) 4.7, Eosinophils (%) (Auto) 4.7, Basophils (%) (Auto) 0.4, Neutrophils # (Auto) 6.12, Lymphocytes # (Auto) 3.35, Monocytes # (Auto) 0.50, Eosinophils # (Auto) 0.49, Basophils # (Auto) 0.04 08/20/17 18:05 Test 08/20/17 18:05 08/20/17 19:00 White Blood Count 10.53 K/uL (4.8-10.8) Red Blood Count 5.20 M/uL (4.7-6.1) Hemoglobin 16.1 g/dL (14.0-18.0) Hematocrit 44.9 % (42-52) Mean Corpuscular Volume 86.3 fL (80-100) Mean Corpuscular Hemoglobin 31.0 pg (25-34) Mean Corpuscular Hemoglobin Concent 35.9 g/dl (32-36) Platelet Count 308 K/uL (130-400) Mean Platelet Volume 10.5 fL (7.4-10.4) Neutrophils (%) (Auto) 58.1 % Lymphocytes (%) (Auto) 31.8 % Monocytes (%) (Auto) 4.7 % Eosinophils (%) (Auto) 4.7 % Basophils (%) (Auto) 0.4 % Neutrophils # (Auto) 6.12 K/uL (1.4-6.5) Lymphocytes # (Auto) 3.35 K/uL (1.2-3.4) Monocytes # (Auto) 0.50 K/uL (0.11-0.59) Eosinophils # (Auto) 0.49 K/uL (0-0.5) Basophils # (Auto) 0.04 K/uL (0-0.2) RDW Standard Deviation 42.8 fL (36.4-46.3) RDW Coefficient of Variation 13.5 % (11.5-14.5) Immature Granulocyte % (Auto) 0.3 % Immature Granulocyte # (Auto) 0.03 K/uL (0.00-0.02) Erythrocyte Sedimentation Rate 5 mm/hr (0-14) Anion Gap 10.0 mmol/L (3-11) Est Creatinine Clear Calc Drug Dose 147.7 ml/min Estimated GFR () 133.6 Estimated GFR (Non- 115.3 BUN/Creatinine Ratio 10.3 (10-20) Calcium Level 9.9 mg/dl (8.5-10.1) Total Bilirubin 0.2 mg/dl (0.2-1) Direct Bilirubin < 0.1 mg/dl (0-0.2) Aspartate Amino Transf (AST/SGOT) 10 U/L (15-37) Alanine Aminotransferase (ALT/SGPT) 18 U/L (12-78) Alkaline Phosphatase 81 U/L (45-117) C-Reactive Protein 0.36 mg/dl (0-0.29) Total Protein 7.7 gm/dl (6.4-8.2) Albumin 4.2 gm/dl (3.4-5.0) Lipase 98 U/L (73-393) Urine Color DK YELLOW Urine Appearance CLEAR (CLEAR) Urine pH 5.0 (4.5-7.5) Urine Specific [place] 1.031 (1.000-1.030) Urine Protein NEG (NEG) Urine Glucose (UA) NEG (NEG) Urine Ketones TRACE (NEG) Urine Occult Blood NEG (NEG) Urine Nitrite NEG (NEG) Urine Bilirubin NEG (NEG) Urine Urobilinogen NEG (NEG) Urine Leukocyte Esterase NEG (NEG) Laboratory results per my review. Medications Administered Medications (Trade) Dose Ordered Sig/Mariana Route Start Time Stop Time Status Last Admin Dose Admin Sodium Chloride 1,000 ml @ 999 mls/hr Q1H1M STAT IV 08/20/17 17:54 08/20/17 18:54 DC 08/20/17 18:10 999 MLS/HR Morphine Sulfate (MoRPHine SULFATE INJ) 4 mg Q15M PRN IV 08/20/17 18:00 08/20/17 22:46 DC 08/20/17 21:37 4 MG Promethazine HCl 25 mg/Sodium Chloride 51 ml @ 204 mls/hr NOW STAT IV 08/20/17 17:54 08/20/17 18:08 DC 08/20/17 18:10 204 MLS/HR Oxycodone HCl (Roxicodone Immediate Rel 5MG Home Pack) 1 homepack UD ONCE PO 08/20/17 22:15 08/20/17 22:16 DC 08/20/17 22:13 1 HOMEPACK Ondansetron HCl (ZOFRAN ODT 4MG Home Pack) 1 homepack UD ONCE PO 08/20/17 22:15 08/20/17 22:16 DC 08/20/17 22:13 1 HOMEPACK ED Course 175: The patient was evaluated in room A2. A complete history and physical examination were performed. 175: Promethazine HCl 25 mg/NSS 51 @ 204 mls/hr IV, NSS 1000 ml @ 999 mls/hr IV. 1800: Morphine Sulfate 4 mg IV. 1939: I reevaluated the patient. He is still in pain. I discussed the risks and benefits of MRI and he is agreeable. 2144: Gadavist 9.5 mmol IV. 2214: I reevaluated the patient. He is feeling well and resting comfortably. I discussed his results and discharge instructions and he verbalized complete understanding. 2214: Zofran 4 mg 1 homepack PO, Oxycodone 5 mg 1 homepack PO. Medical Decision Prior records/ancillary studies reviewed. Triage Nursing notes reviewed. The patient's history was concerning for headache. Differential diagnosis: Etiologies such as migraine headache, meningitis, sinusitis, CO exposure, ICH, SAH, infection, tumor, headache, sinus thrombosis, arterial dissection, as well as others were entertained. The patient is a 31-year-old male who presented to the emergency department for an evaluation of diplopia and headache. The patient did not have any focal neurologic deficits. He did not have meningismus or fever. The patient's CAT scan did not show any acute disease. I was concerned that the patient would not be able to get a follow-up appointment because of his lack of family physician at this time. This reason an MRI was also obtained. I discussed the patient's laboratory and radiographic studies with him. He was treated with IV fluids IV pain medicine and IV antiemetics. On subsequent reevaluation he was feeling much better. He was encouraged to rest and avoid any strenuous activity. He was also encouraged to continue all medications as prescribed and follow-up with a family doctor soon as possible. Otherwise she was encouraged to return the emergency Department immediately if symptoms change worsen or the need arises. Medication Reconcilliation Current Medication List: was personally reviewed by me Blood Pressure Screening Patient's blood pressure: Normal blood pressure Blood pressure disposition: Did not require urgent referral Impression Primary Impression: Headache Additional Impression: Diplopia Scribe Attestation The scribe's documentation has been prepared under my direction and personally reviewed by me in its entirety. I confirm that the note above accurately reflects all work, treatment, procedures, and medical decision making performed by me. Departure Information Dispostion Home / Self-Care Prescriptions No Active Prescriptions or Reported Meds Referrals No Doctor, Assigned (PCP) Patient Instructions Headache Pain, My [facility] Additional Instructions Schedule follow-up appointment with a primary care physician as soon as possible. Continue using Motrin and Tylenol as directed for pain. Rest and avoid any strenuous activity. Problem Qualifiers Primary Impression: Headache Headache type: unspecified Headache chronicity pattern: unspecified pattern Intractability: not intractable Qualified Codes: R51 - Headache
[2017-08-20] MEDS: MoRPHine SULFATE 4 MG/ML 1 ML CARP\\VIAL IV PRN ×2 (18:12→21:37)
[2017-08-20 18:22] LABS: BASO % 0.4 %; BASO ABS # 0.04 K/uL (0-0.2); COMPLETE YES; EOS % 4.7 %; HEMATOCRIT 44.9 % (42-52); IG% 0.3 %; LYMPH % 31.8 %; LYMPH ABS # 3.35 K/uL (1.2-3.4); MEAN CELL VOLUME 86.3 fL (80-100); MEAN CORPUSCULAR HGB CONC 35.9 g/dl (32-36); MEAN PLATELET VOLUME 10.5 fL (7.4-10.4); MONO % 4.7 %; NEUT % 58.1 %; PLATELET COUNT 308 K/uL (130-400); WHITE BLOOD COUNT 10.53 K/uL (4.8-10.8)
--- NOTE | 2017-08-20 18:43 | DIAGNOSTIC IMAGING REPORT ---
HEAD WITHOUT CONTRAST (CT) CLINICAL HISTORY: 31 years-old Male with ROY and diplopia. Acute headache and diplopia. TECHNIQUE: Multiple axial CT images of the head were obtained without contrast. A dose lowering technique was utilized adhering to the principles of ALARA. CT DOSE: 601.98 mGy.cm COMPARISON: CT head 11/30/2016. FINDINGS: No acute intracranial hemorrhage, midline shift, mass, large territorial ischemia or abnormal extra-axial collection. The calvarium is intact. The mastoid air cells, and middle ear cavities are clear. There is mild ethmoid sinus disease. There is suggested disconjugate gaze. IMPRESSION: 1. No acute intracranial abnormality. 2. Suggested disconjugate gaze. 3. Mild ethmoid sinus disease. The above report was generated using voice recognition software. It may contain grammatical, syntax or spelling errors. Electronically signed by: Ronaldo Bryant M.D. 08/20/2017 6:42 PM Dictated Date/Time: 08/20/2017 6:39 PM
[2017-08-20 18:46] LABS: ALT/SGPT 18 U/L (12-78); BLOOD UREA NITROGEN 9 mg/dl (7-18); BUN/CREATININE RATIO 10.3 (10-20); C-REACTIVE PROTEIN 0.36 mg/dl (0-0.29); CALCIUM 9.9 mg/dl (8.5-10.1); CARBON DIOXIDE 23 mmol/L (21-32); CHLORIDE 105 mmol/L (98-107); CREATININE 0.88 mg/dl (0.60-1.40); GLUCOSE 108 mg/dl (70-99); POTASSIUM 3.8 mmol/L (3.5-5.1); SODIUM 138 mmol/L (136-145)
[2017-08-20 18:49] LABS: ALKALINE PHOSPHATASE 81 U/L (45-117); AST/SGOT 10 U/L (15-37)
[2017-08-20 19:14] LABS: URINE APPEARANCE CLEAR (CLEAR); URINE BILIRUBIN NEG (NEG); URINE COLOR DK YELLOW; URINE NITRITE NEG (NEG); URINE SPECIFIC GRAVITY 1.031 (1.000-1.030); UROBILINOGEN NEG (NEG)
[2017-08-20 19:18] LABS: MANUAL MICROSCOPIC REQUIRED? NO; REVIEW REQ? NO
--- NOTE | 2017-08-20 21:44 | DIAGNOSTIC IMAGING REPORT ---
MRI OF THE BRAIN WITHOUT AND WITH IV CONTRAST CLINICAL HISTORY: Headache and diplopia. COMPARISON STUDY: Head CT November 30, 2016 and August 20, 2017. TECHNIQUE: Utilizing a 1.5 Sheila magnet and dedicated coil, multiplanar, multiecho imaging of the brain was performed pre and postcontrast administration. IV administration of 9.5 mL of Gadavist contrast was uneventful. FINDINGS: There are no areas of restricted diffusion. No acute intracranial hemorrhage, midline shift or mass effect is present. Study is mildly compromised by motion artifact. No intracranial mass or pathologic enhancement is identified. Ventricular system is normal. Basilar cisterns are patent. Flow-voids for the major intracranial vessels are present. No areas of parenchymal signal abnormality is evident. The orbits are unremarkable. There is no fluid within the mastoid air cells. There is mild mucosal thickening of the sinuses. IMPRESSION: Unremarkable MRI of the brain. Electronically signed by: Sanjeev Marcos M.D. 08/20/2017 9:43 PM Dictated Date/Time: 08/20/2017 9:38 PM
[2017-08-20] MEDS ORDERED: GADAVIST IV PRN (21:45)
--- NOTE | 2017-08-20 21:50 | DIAGNOSTIC IMAGING REPORT ---
MRA OF THE INTRACRANIAL CIRCULATION WITHOUT CONTRAST CLINICAL HISTORY: Headache with diplopia. COMPARISON STUDY: Head CT performed earlier today. TECHNIQUE: Utilizing a 1.5 Sheila magnet and 3-D [id number]-[id number] technique, unenhanced MRA of the intracranial circulation was obtained. FINDINGS: This exam is mildly compromised by motion artifact. No abrupt vessel cut off is identified. The bilateral M1, M2, A1 and A2 segments are patent. There is an anterior communicating artery and bilateral posterior communicating arteries. Posterior circulation is intact. No intracranial aneurysm is identified although sensitivity for detection of small aneurysms is diminished on this exam. IMPRESSION: 1. Unremarkable MRA of the intracranial circulation. 2. No aneurysm identified although sensitivity for detection of small aneurysms diminished given mild motion artifact. 3. Apparent intracranial vascular irregularity which is likely artifactual. Electronically signed by: Sanjeev Marcos M.D. 08/20/2017 9:48 PM Dictated Date/Time: 08/20/2017 9:44 PM
[2017-08-20 22:14] VITALS: BP 134/72; PULSE 72; O2SAT 98
[2017-08-20] MEDS ORDERED: ONDANSETRON HOME PACK 4MG OD TAB PO ONE (22:15)
[2017-08-20] MEDS ORDERED: OXYCODONE IR HOME PACK PO ONE (22:15)
== END 2017-08-20 22:15 | disposition home or self-care (01) ==
LOC: C.EDB 17:41 → C.EDA 22:15
DX: R51 Headache (principal); H53.2 Diplopia; F41.9 Anxiety disorder, unspecified; J45.909 Unspecified asthma, uncomplicated; F31.81 Bipolar II disorder; G89.29 Other chronic pain; M54.5 Low back pain; F43.10 Post-traumatic stress disorder, unspecified; F17.210 Nicotine dependence, cigarettes, uncomplicated; Z80.9 Family history of malignant neoplasm, unspecified; Z82.49 Family history of ischemic heart disease and other diseases of the circulatory system

== ENCOUNTER 2017-10-03 20:26 | Emergency (ER) | payer OTHER ==
[~2017-10-03] VITALS: Ht 182.9 cm; Wt 96.5 kg
[2017-10-03 20:29] VITALS: TEMP 36.8; Ht 182.9 cm; Wt 96.5 kg
--- NOTE | 2017-10-03 21:59 | DIAGNOSTIC IMAGING REPORT ---
L FINGER(S) MIN 2 VIEWS ROUTINE HISTORY: 31 years-old Male pain and swelling L 2nd Finger acute pain and swelling of the left index finger COMPARISON: Radiographs 10/22/2016 TECHNIQUE: 3 views of the left second finger FINDINGS: Moderate soft tissue swelling of the left second digit and also within the partially imaged third digit. There is mild flexion of the interphalangeal joints which mildly limits the study. There is no acute fracture, dislocation or significant degenerative changes. No opaque foreign body. IMPRESSION: Moderate soft tissue swelling without acute fracture or dislocation. The above report was generated using voice recognition software. It may contain grammatical, syntax or spelling errors. Electronically signed by: Ronaldo Bryant M.D. 10/03/2017 9:57 PM Dictated Date/Time: 10/03/2017 9:56 PM
--- NOTE | 2017-10-03 22:23 | EMERGENCY ROOM VISIT NOTE ---
History First contact with patient: 20:38 Chief Complaint: FINGER PAIN Stated Complaint: LT HAND, 2ND DIGIT PAIN, SWELLING History of Present Illness The patient is a 31 year old male who presents to the Emergency Room with complaints of pain and swelling of his left index finger. The patient has a remote history of tendon laceration and repair of the finger almost one year ago. He states this was performed locally by Dr. Kramer. He states he has had swelling in the finger for a few hours. He rates his pain a 7/10. The patient denies any fevers. He denies any new injuries. Review of Systems A complete 10 point review of systems was reviewed with the patient with pertinent positives and negatives as per history of present illness. All else were negative. Past Medical/Surgical History Medical Problems: (1) ANXIETY STATE NOS (2) ASTHMA, UNSPECIFIED, W (ACUTE) EXACERBATION (3) Bipolar II disorder (4) Chronic low back pain (5) Disc degeneration (6) DRUG ABUSE NEC-UNSPEC (7) LUMBAGO (8) POSTTRAUMATIC STRESS DISORDER (9) TOBACCO USE DISORDER Surgical Problems: (1) History of back surgery (2) History of repair of anterior cruciate ligament of left knee Family History FH: cancer FH: lung disease Hypertension Social History Smoking Status: Current Every Day Smoker Alcohol Use: none Drug Use: none Marital Status: Housing Status: lives with family Occupation Status: employed Current/Historical Medications Scheduled Cephalexin Monohydrate (Keflex), 500 MG PO QID Sulfa/Trimethoprim (Bactrim Ds 800MG/160MG), 1 TAB PO BID Physical Exam Vital Signs Date Time Temp Pulse Resp B/P (MAP) Pulse Ox O2 Delivery O2 Flow Rate FiO2 10/03/17 22:38 93 18 142/88 97 10/03/17 20:29 36.8 90 16 148/88 98 Room Air Physical Exam VITALS: Vitals are noted on the nurse's note and reviewed by myself. Vital signs stable. GENERAL: This is a 31-year-old male, in no acute distress, nondiaphoretic, well- developed well-nourished. MUSCULOSKELETAL: There are surgical scars to the dorsal aspect of the proximal phalanx of the left second digit. There is mild soft tissue swelling extending from the MCP to the PIP with mild erythema. Full range of motion. Capillary refill within 2 seconds. NEURO: Patient was alert and oriented to person place and time. Normal sensation to light and sharp touch. Medical Decision & Procedures ER Provider Diagnostic Interpretation: L FINGER(S) MIN 2 VIEWS ROUTINE HISTORY: 31 years-old Male pain and swelling L 2nd Finger acute pain and swelling of the left index finger COMPARISON: Radiographs 10/22/2016 TECHNIQUE: 3 views of the left second finger FINDINGS: Moderate soft tissue swelling of the left second digit and also within the partially imaged third digit. There is mild flexion of the interphalangeal joints which mildly limits the study. There is no acute fracture, dislocation or significant degenerative changes. No opaque foreign body. IMPRESSION: Moderate soft tissue swelling without acute fracture or dislocation. Medications Administered Medications (Trade) Dose Ordered Sig/Mariana Route Start Time Stop Time Status Last Admin Dose Admin Trimethoprim/ Sulfamethoxazole (Sulfameth/ Trimeth Ds 800/ 160MG Home Pack) 1 homepack UD ONCE PO 10/03/17 22:30 10/03/17 22:31 DC 10/03/17 22:35 1 HOMEPACK Cephalexin Monohydrate (Keflex 500MG Home Pack) 1 homepack NOW ONCE PO 10/03/17 22:30 10/03/17 22:31 DC 10/03/17 22:35 1 HOMEPACK Acetaminophen/ Hydrocodone Bitart ([place] 5/325mg Home Pack) 1 homepack UD ONCE PO 10/03/17 22:30 10/03/17 22:31 DC 10/03/17 22:35 1 HOMEPACK Medical Decision Differential diagnosis includes cellulitis, abscess, tendinitis, tenosynovitis, fracture, among others. The patient is a 31-year-old male who presents today complaining of finger pain and swelling. The finger is minimally swollen and erythematous. X-ray is unremarkable. This may represent a cellulitis and the patient was placed on Keflex and Bactrim. He was encouraged to follow-up with his orthopedist for further evaluation. He will return for worsening symptoms. He verbalized understanding of my assessment and treatment plan and was discharged home in good condition. Medication Reconcilliation Current Medication List: was personally reviewed by me Blood Pressure Screening Patient's blood pressure: Elevated blood pressure Blood pressure disposition: Elevated BP felt to be situational Impression Primary Impression: Finger pain, left Departure Information Dispostion Home / Self-Care Condition GOOD Prescriptions Cephalexin Monohydrate (Keflex) 500 Mg Cap 500 MG PO QID for 9 Days, #36 CAP Prov: Peggy Mccormick PA-C 10/03/17 Sulfa/Trimethoprim (Bactrim Ds 800MG/160MG) Tab 1 TAB PO BID for 9 Days, #18 TAB Prov: Peggy Mccormick PA-C 10/03/17 Referrals No Doctor, Assigned (PCP) Mehul Karmer MD Patient Instructions My [facility] Additional Instructions Follow-up with your established orthopedic surgeon for further evaluation. You were prescribed Bactrim to be taken twice daily as prescribed. This is an antibiotic. All antibiotics have the potential to cause diarrhea. Stop this medication and contact a medical provider if you were to develop any significant adverse side effects including: wheezing, shortness of breath, passing out, vomiting, or a diffuse rash. Always take antibiotics as directed and COMPLETE the ENTIRE course regardless of the improvement of your symptoms. You were prescribed Keflex to be taken 4 times daily as prescribed. This is an antibiotic. All antibiotics have the potential to cause diarrhea. Stop this medication and contact a medical provider if you were to develop any significant adverse side effects including: wheezing, shortness of breath, passing out, vomiting, or a diffuse rash. Always take antibiotics as directed and COMPLETE the ENTIRE course regardless of the improvement of your symptoms. For pain control, you can use the following [id number] medicines (if >12 yo): - Regular strength (325mg/tab) Tylenol (acetaminophen) 2 tabs every 4-6 hours as needed. Do not exceed 12 tablets in a 24 hour period. Avoid taking more than 4 grams (4000 mg) of Tylenol per day. This includes any other sources of acetaminophen you may take on a regular basis. - Regular strength (200 mg/tab) Advil (ibuprofen) 1-2 tabs every 4-6 hours as needed. Do not exceed a dose of 3200 mg per day. Return to the emergency department with worsening redness/swelling, fevers, or any other new/concerning symptoms.
[2017-10-03] MEDS ORDERED: CEPHALEXIN 500MG HOME PACK 1 EA BTL PO ONE (22:30)
[2017-10-03] MEDS ORDERED: NORCO 5/325MG HOME PACK PO ONE (22:30)
[2017-10-03] MEDS ORDERED: SEPTRA DS HOME PACK 1 EA VIAL PO ONE (22:30)
[2017-10-03] MEDS ORDERED: SULF800T23 PO (22:37)
[2017-10-03] MEDS ORDERED: CEPH500C PO (22:37)
[2017-10-03 22:38] VITALS: BP 142/88; PULSE 93; O2SAT 97
== END 2017-10-03 22:39 | disposition home or self-care (01) ==
LOC: C.EDB 20:28 → C.EDD 22:39
DX: M79.645 Pain in left finger(s) (principal); M79.89 Other specified soft tissue disorders; F17.200 Nicotine dependence, unspecified, uncomplicated; M54.5 Low back pain; G89.29 Other chronic pain; Z82.49 Family history of ischemic heart disease and other diseases of the circulatory system

== ENCOUNTER 2018-02-03 13:30 | Emergency (ER) | payer OTHER ==
[~2018-02-03] VITALS: Ht 182.9 cm; Wt 91.5 kg
[2018-02-03 13:32] VITALS: TEMP 36.7; Ht 182.9 cm; Wt 91.5 kg
[2018-02-03] MEDS ORDERED: KETOROLAC TROMETHAMINE 30 MG/ML VIAL IV STA (13:44)
[2018-02-03] MEDS ORDERED: MoRPHine SULFATE 4 MG/ML 1 ML CARP\\VIAL IV STA (13:44)
[2018-02-03] MEDS ORDERED: SODIUM CHLORIDE 0.9% 1000ML 1,000 ML IV STA (13:44)
[2018-02-03 14:47] LABS: BASO % 0.3 %; BASO ABS # 0.04 K/uL (0-0.2); EOS % 3.6 %; EOS ABS # 0.43 K/uL (0-0.5); HEMATOCRIT 44.5 % (42-52); HEMOGLOBIN 15.3 g/dL (14.0-18.0); IG# 0.04 K/uL (0.00-0.02); LYMPH % 12.8 %; LYMPH ABS # 1.54 K/uL (1.2-3.4); MEAN CELL VOLUME 87.4 fL (80-100); MEAN CORPUSCULAR HEMOGLOBIN 30.1 pg (25-34); MEAN CORPUSCULAR HGB CONC 34.4 g/dl (32-36); MEAN PLATELET VOLUME 10.3 fL (7.4-10.4); MONO % 7.2 %; MONO ABS # 0.86 K/uL (0.11-0.59); NEUT % 75.8 %; PLATELET COUNT 263 K/uL (130-400); RED CELL DISTRIBUTION WIDTH CV 13.2 % (11.5-14.5); RED CELL DISTRIBUTION WIDTH SD 42.6 fL (36.4-46.3); WHITE BLOOD COUNT 12.01 K/uL (4.8-10.8)
--- NOTE | 2018-02-03 14:54 | DIAGNOSTIC IMAGING REPORT ---
CERVICAL SPINE W/O CT DOSE: 259.54 mGy.cm CLINICAL HISTORY: 32 years-old Male with Neck pain, hx fx. pain down R arm. Acute neck pain with history of prior neck surgery. Pain radiates into the right upper extremity. COMPARISON: CT cervical spine 06/30/2015 TECHNIQUE: Multiple axial CT images of the cervical spine were obtained without contrast. A dose lowering technique was utilized adhering to the principles of ALARA. FINDINGS: No acute cervical spine fracture or subluxation identified. There is straightening of the normal cervical lordosis. Postoperative changes from anterior fusion with discectomy redemonstrated at the C5-C6 level. No evidence of hardware fracture or loosening. Posterior disc osteophyte complex formation at the C4-C5 level redemonstrated with mild flattening of the ventral thecal sac. There is also suggested mild right foraminal narrowing at this level. Small posterior disc osteophyte complex formation is also seen at C6-C7 which appears to have not significantly changed. Mild flattening of the ventral thecal sac is also noted at this level without definite significant central canal or foraminal narrowing identified. Mastoid air cells and middle ear cavities are clear. Mild mucosal thickening of the left sphenoid sinus and bilateral maxillary sinuses. Lung apices are clear. Soft tissues are unremarkable. IMPRESSION: 1. No acute cervical spine fracture or subluxation. 2. Postoperative changes from discectomy with anterior fusion at C5-C6. 3. Small posterior disc osteophyte complex formations are again seen at the C4-C5 and C6-C7 levels with suggested mild central canal and mild right foraminal narrowing at C4-C5. These findings could be further evaluated with follow-up non-emergent MRI of the neck if clinically warranted. The above report was generated using voice recognition software. It may contain grammatical, syntax or spelling errors. Electronically signed by: Ronaldo Bryant M.D. 02/03/2018 2:53 PM Dictated Date/Time: 02/03/2018 2:48 PM
[2018-02-03 15:04] LABS: CREATININE 0.69 mg/dl (0.60-1.40); POTASSIUM 4.2 mmol/L (3.5-5.1)
[2018-02-03 15:10] VITALS: BP 119/89
[2018-02-03] MEDS ORDERED: OXYC1TAB3 PO (15:23)
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
[2018-02-03 15:52] VITALS: PULSE 72; O2SAT 98
== END 2018-02-03 15:55 | disposition home or self-care (01) ==
LOC: C.EDB 13:32
DX: M54.2 Cervicalgia (principal); D72.829 Elevated white blood cell count, unspecified; R20.0 Anesthesia of skin; J45.909 Unspecified asthma, uncomplicated; M54.5 Low back pain; G89.29 Other chronic pain; F17.200 Nicotine dependence, unspecified, uncomplicated; Z87.81 Personal history of (healed) traumatic fracture; Z96.9 Presence of functional implant, unspecified; Z83.6 Family history of other diseases of the respiratory system; Z82.49 Family history of ischemic heart disease and other diseases of the circulatory system

== ENCOUNTER 2018-02-17 19:23 | Emergency (ER) | payer OTHER ==
[~2018-02-17] VITALS: Ht 182.9 cm; Wt 93.3 kg
[2018-02-17 19:25] VITALS: TEMP 36.6; Ht 182.9 cm; Wt 93.3 kg
--- NOTE | 2018-02-17 19:47 | EMERGENCY ROOM VISIT NOTE ---
History Report prepared by Lalito: Erlin Lazcano Under the Supervision of: Dr. Refugio Harkins M.D. First contact with patient: 19:33 Chief Complaint: WOUND INFECTION Stated Complaint: SWOLLEN, REDNESS PAIN, LEFT LEFT History of Present Illness The patient is a 32 year old male who presents to the Emergency Room with complaints of a worsening infection to the left lower leg beginning two days ago. The patient states he received a new tattoo a week ago. He reports the swelling has been fluctuating for the past two days. The patient notes it was twice the size of his other ankle last evening. He states the surrounding muscle became tender and sore. The patient reports walking increases his discomfort and caused his left foot to go numb. He notes he peeled the scab off of it last night, and green and yellow puss came out of it. The patient states he has a history of smoking. He denies a history of an abscess, fevers, chills, nausea, and vomiting. Source of History: patient Onset: two days ago Position: leg (left, lower) Quality: other (infection) Timing: worsening Modifying Factors (Worsening): movement (walking) Associated Symptoms: + numbness (left foot), No fevers, No chills, No nausea , No vomiting Note: Associated symptoms: fluctuating swelling, green and yellow puss Denies: a history of an abscess Review of Systems See HPI for pertinent positives and negatives. A total of ten systems were reviewed and were otherwise negative. Past Medical & Surgical Medical Problems: (1) ANXIETY STATE NOS (2) ASTHMA, UNSPECIFIED, W (ACUTE) EXACERBATION (3) Bipolar II disorder (4) Chronic low back pain (5) Disc degeneration (6) DRUG ABUSE NEC-UNSPEC (7) LUMBAGO (8) POSTTRAUMATIC STRESS DISORDER (9) TOBACCO USE DISORDER Surgical Problems: (1) History of back surgery (2) History of repair of anterior cruciate ligament of left knee Family History FH: cancer FH: lung disease Hypertension Social History Smoking Status: Current Every Day Smoker Alcohol Use: none Drug Use: none Marital Status: Housing Status: lives with family Occupation Status: employed Current/Historical Medications Scheduled Cephalexin Monohydrate (Keflex), 500 MG PO QID Saccharomyces Boulardii (Florastor), 1 CAP PO BID Sulfamethoxazole-Trimethoprim (Bactrim Ds 800MG/160MG), 2 TAB PO BID Allergies Coded Allergies: BEE STING (Verified Allergy, Severe, "EXCESSIVE" SWELLING, 02/17/18) Physical Exam Vital Signs Date Time Temp Pulse Resp B/P (MAP) Pulse Ox O2 Delivery O2 Flow Rate FiO2 02/17/18 20:14 97 20 131/81 95 02/17/18 20:05 97 20 131/81 95 Room Air 02/17/18 19:25 36.6 102 20 137/84 95 Room Air Physical Exam GENERAL: Awake, alert, in no distress. HENT: Normocephalic, atraumatic. Oropharynx is dry with cracked mucous membranes , otherwise unremarkable. EYES: Normal conjunctiva. Sclera non-icteric. NECK: Supple. No nuchal rigidity. FROM. No JVD. RESPIRATORY: Clear to auscultation. CARDIAC: Regular rate, normal rhythm. Extremities warm and well perfused. Pulses equal. ABDOMEN: Soft, non-distended. No tenderness to palpation. No rebound or guarding. No masses. RECTAL: Deferred. MUSCULOSKELETAL: Chest examination reveals no tenderness. The back is symmetrical on inspection without obvious abnormality. There is no CVA tenderness to palpation. No joint edema. LOWER EXTREMITIES: No edema. Left calf has erythema and warmth at tattoo site measuring 4cm in diameter. Compartment soft. Distal PMS intact. NEURO: Normal sensorium. No sensory or motor deficits noted. SKIN: No rash or jaundice noted. Medical Decision & Procedures Medications Administered Medications (Trade) Dose Ordered Sig/Mariana Route Start Time Stop Time Status Last Admin Dose Admin Cephalexin Monohydrate (Keflex 500MG Home Pack) 1 homepack NOW STAT PO 02/17/18 19:57 02/17/18 20:01 DC 02/17/18 20:09 1 HOMEPACK Cephalexin Monohydrate (Keflex Cap) 500 mg NOW STAT PO 02/17/18 19:57 02/17/18 20:01 DC 02/17/18 20:08 500 MG Trimethoprim/ Sulfamethoxazole (Septra Ds 800/ 160MG Tab) 2 tab NOW STAT PO 02/17/18 19:57 02/17/18 20:01 DC 02/17/18 20:08 2 TAB Trimethoprim/ Sulfamethoxazole (Sulfameth/ Trimeth Ds 800/ 160MG Home Pack) 1 homepack UD ONCE PO 4/1/18 20:00 02/17/18 20:02 DC 02/17/18 20:09 1 HOMEPACK Ibuprofen (Motrin Tab) 800 mg NOW STAT PO 02/17/18 20:01 02/17/18 20:02 DC 02/17/18 20:08 800 MG ED Course 1937: The patient was evaluated in room C06. A complete history and physical exam was performed. 1948: I reevaluated the patient and performed a bedside ultrasound. The bedside ultrasound revealed no evidence of an abscess. Discussed results and discharge instructions: he verbalized understanding and agreement. The patient is ready for discharge. Medical Decision I reviewed the patient's past medical history, medications, and the nursing notes as described above. Differential diagnoses include: cellulitis, abscess, DVT, osteomyelitis, local inflammation. The patient is a 32-year-old gentleman who presents emergency department with left lower leg pain and swelling in the setting of a recent tattoo per hpi. On arrival the patient is in no acute distress, afebrile stable vital signs. She has a 5 cm area of erythema and warmth underlying his recent tattoo in his left lower leg. No crepitus, induration or fluctuance. Bedside ultrasound negative for any fluid collection concerning for abscess. Thus will treat with Keflex and Bactrim. Plan for close PCP follow-up. Findings and plan for follow-up reviewed with patient. Patient agreeable and d/c'd per discharge instructions. Medication Reconcilliation Current Medication List: was personally reviewed by me Blood Pressure Screening Patient's blood pressure: Normal blood pressure Blood pressure disposition: Did not require urgent referral Impression Primary Impression: Cellulitis of lower leg Scribe Attestation The scribe's documentation has been prepared under my direction and personally reviewed by me in its entirety. I confirm that the note above accurately reflects all work, treatment, procedures, and medical decision making performed by me. Departure Information Dispostion Home / Self-Care Prescriptions Saccharomyces Boulardii (Florastor) 250 Mg Cap 1 CAP PO BID for 10 Days, #20 CAP Prov: Refugio Harkins M.D. 02/17/18 Sulfamethoxazole-Trimethoprim (Bactrim Ds 800MG/160MG) 1 Tab Tab 2 TAB PO BID for 7 Days, #28 TAB Prov: Refugio Harkins M.D. 02/17/18 Cephalexin Monohydrate (Keflex) 500 Mg Cap 500 MG PO QID for 7 Days, #28 CAP Prov: Refugio Harkins M.D. 02/17/18 Referrals No Doctor, Assigned (PCP) Forms HOME CARE DOCUMENTATION FORM, IMPORTANT VISIT INFORMATION, WORK / SCHOOL INSTRUCTIONS Patient Instructions ED Infec Skin Cellulitis, My [facility] Additional Instructions Please follow up with your primary care physician in the next 1-3 days for re- evaluation. You have a skin infection related to your recent tattoo. Otherwise, your exam and bedside ultrasound did not show signs of an emergent condition at this time. Acetaminophen or ibuprofen for pain and fevers as needed. Antibiotics as directed. Florastor, probiotic, to help prevent antibiotic associated diarrhea. Drink plenty of fluids to ensure hydration. Return to the emergency department for worsening symptoms as described in the accompanying instructions.
[2018-02-17] MEDS ORDERED: SULFAMETHOXAZOLE/TRIMETHOPRIM DS 800/160MG TAB PO STA (19:57)
[2018-02-17] MEDS ORDERED: CEPHALEXIN 500MG HOME PACK 1 EA BTL PO STA (19:57)
[2018-02-17] MEDS ORDERED: CEPHALEXIN MONOHYDRATE 250 MG CAP PO STA (19:57)
[2018-02-17] MEDS ORDERED: SEPTRA DS HOME PACK 1 EA VIAL PO ONE (20:00)
[2018-02-17] MEDS ORDERED: IBUPROFEN 800 MG TAB PO STA (20:01)
[2018-02-17] MEDS ORDERED: SACC250C3 PO (20:03)
[2018-02-17] MEDS ORDERED: CEPH500C PO (20:03)
[2018-02-17] MEDS ORDERED: SULF800T23 PO (20:03)
[2018-02-17 20:14] VITALS: BP 131/81; PULSE 97; O2SAT 95
== END 2018-02-17 20:15 | disposition home or self-care (01) ==
LOC: C.EDB 19:25 → C.EDC 20:15
DX: L03.116 Cellulitis of left lower limb (principal); F41.9 Anxiety disorder, unspecified; J45.909 Unspecified asthma, uncomplicated; F31.9 Bipolar disorder, unspecified; M54.5 Low back pain; G89.29 Other chronic pain; F19.10 Other psychoactive substance abuse, uncomplicated; F43.10 Post-traumatic stress disorder, unspecified; F17.210 Nicotine dependence, cigarettes, uncomplicated; Z80.9 Family history of malignant neoplasm, unspecified; Z83.6 Family history of other diseases of the respiratory system; Z82.49 Family history of ischemic heart disease and other diseases of the circulatory system; Z91.030 Bee allergy status

== ENCOUNTER 2018-07-06 01:44 | Emergency (ER) | payer OTHER ==
[~2018-07-06] VITALS: Ht 182.9 cm; Wt 87.2 kg
[~2018-07-06 01:44] MED LIST changes: +HYDR-3763 PO; -OXYC1TAB3 PO; +STR40 PO; +ZLF50 PO
[2018-07-06 01:51] VITALS: TEMP 36.7; Ht 182.9 cm; Wt 87.2 kg
[2018-07-06] MEDS ORDERED: CEFTRIAXONE SOD INJ 1 GM ADDVIAL IV STA (02:14)
[2018-07-06] MEDS ORDERED: VANCOMYCIN IV 1,800 MG in SODIUM CHLORIDE 0.9% 500ML 500 ML IV STA (02:14)
[2018-07-06] MEDS ORDERED: SODIUM CHLORIDE 0.9% 1000ML 1,000 ML IV STA (02:14)
[2018-07-06] MEDS ORDERED: VANCOMYCIN CONSULT ACTIVE PRN (02:15)
[2018-07-06] MEDS ORDERED: OPTIRAY 320 IV PRN (02:30)
[2018-07-06] MEDS ORDERED: SERT50TA PO (02:44)
[2018-07-06] MEDS ORDERED: CLON0.5T9 PO (02:46)
[2018-07-06 02:56] LABS: BASO % 0.4 %; BASO ABS # 0.04 K/uL (0-0.2); EOS % 3.7 %; EOS ABS # 0.42 K/uL (0-0.5); HEMATOCRIT 41.8 % (42-52); HEMOGLOBIN 14.2 g/dL (14.0-18.0); IG# 0.04 K/uL (0.00-0.02); LYMPH % 34.4 %; LYMPH ABS # 3.92 K/uL (1.2-3.4); MEAN CELL VOLUME 87.4 fL (80-100); MEAN CORPUSCULAR HEMOGLOBIN 29.7 pg (25-34); MEAN PLATELET VOLUME 10.3 fL (7.4-10.4); MONO % 6.2 %; MONO ABS # 0.71 K/uL (0.11-0.59); NEUT % 54.9 %; NEUT ABS # 6.25 K/uL (1.4-6.5); PLATELET COUNT 291 K/uL (130-400); RED CELL DISTRIBUTION WIDTH CV 13.7 % (11.5-14.5); WHITE BLOOD COUNT 11.38 K/uL (4.8-10.8)
[2018-07-06] MEDS ORDERED: METOCLOPRAMIDE HCL INJ 5 MG/ML 2 ML VIAL IV STA (02:59)
[2018-07-06] MEDS ORDERED: DiphenhydrAMINE HCL 50 MG/ML VIAL IV STA (02:59)
[2018-07-06] MEDS ORDERED: KETOROLAC TROMETHAMINE 30 MG/ML VIAL IV STA (02:59)
[2018-07-06 03:05] LABS: PTT PATIENT 27.7 SECONDS (21.0-31.0)
[2018-07-06 03:18] LABS: ALBUMIN 3.8 gm/dl (3.4-5.0); CALCIUM 8.8 mg/dl (8.5-10.1); CREATININE 0.8 mg/dl (0.60-1.40); POTASSIUM 3.7 mmol/L (3.5-5.1); TOTAL PROTEIN 7.2 gm/dl (6.4-8.2)
--- NOTE | 2018-07-06 05:24 | EMERGENCY ROOM VISIT NOTE ---
History First contact with patient: :56 Chief Complaint: NECK PAIN Stated Complaint: NECK PUSS, SWOLLEN, PAIN History of Present Illness The patient is a 32 year old male who presents to the Emergency Room with complaints of anterior neck pain and swelling for the past week and a half who just finished antibiotics of Cipro for infection. Patient had neck surgery on May 27 of [address] Dr. Aviles. Patient states it got infected and was started on antibiotics. He finished his last dose of Cipro yesterday. Patient c/o pain and swelling to the anterior neck region from the surgical site. He describes as throbbing, ranging in severity 8 out of 10. Worse with palpation and better with rest. It does not radiate. He states there was some drainage from the area. Patient complains of subjective fever and chills. Patient denies chest pain, dyspnea, neck stiffness, abdominal pain, cough, congestion, numbness, tingling. He is tolerating p.o. fluids and food. Review of Systems An 10 system review of systems was completed with positives and pertinent negatives listed in the HPI. Past Medical/Surgical History Medical Problems: (1) ADHD (attention deficit hyperactivity disorder), combined type (2) ANXIETY STATE NOS (3) ASTHMA, UNSPECIFIED, W (ACUTE) EXACERBATION (4) Bipolar disorder (5) Bipolar II disorder (6) Cervical disc disease (7) Chronic low back pain (8) Disc degeneration (9) DRUG ABUSE NEC-UNSPEC (10) History of depression (11) History of herniated intervertebral disc (12) LUMBAGO (13) POSTTRAUMATIC STRESS DISORDER (14) PTSD (post-traumatic stress disorder) (15) Substance dependence (16) TOBACCO USE DISORDER Surgical Problems: (1) H/O neck surgery (2) History of back surgery (3) History of repair of anterior cruciate ligament of left knee (4) Hx of fusion of cervical spine Family History Diabetes mellitus FH: cancer FH: heart disease FH: lung disease Hypertension Social History Smoking Status: Current Every Day Smoker Alcohol Use: none Drug Use: marijuana Marital Status: , in relationship Housing Status: lives with family Occupation Status: unemployed Current/Historical Medications Scheduled Clonazepam (Klonopin), 0.5 MG PO TID Sertraline (Zoloft), 50 MG PO DAILY Physical Exam Vital Signs Date Time Temp Pulse Resp B/P (MAP) Pulse Ox O2 Delivery O2 Flow Rate FiO2 8/18/18 05:02 52 16 116/69 97 Room Air 07/06/18 03:54 54 16 108/51 98 07/06/18 02:55 58 18 120/76 98 Room Air 07/06/18 01:51 36.7 84 20 136/85 99 Room Air Physical Exam VITALS: Vitals are noted on the nurse's note and reviewed by myself. Vital signs stable. GENERAL: White male with tobacco odor, in no acute distress, nondiaphoretic, well-developed well-nourished. SKIN: Left anterior neck with incisional site present that is erythematous and edematous concerning for infection without palpable abscess. Minimal drainage. Culture taken and sent. The rest of the skin was without rashes, erythema, edema, or bruising. There is no tenting of the skin. Capillary reflex less than 2 seconds. HEAD: Normocephalic atraumatic. EARS: External auditory canals clear, tympanic membranes pearly lucia without erythema or effusion bilaterally. EYES: Pupils equal round and reactive to light and accommodation. Conjunctivae without injection, sclerae without icterus. Extraocular movements intact. NOSE: Patent, turbinates without inflammation or discharge. No sinus tenderness. MOUTH: Mucous membranes moist. Pharynx without erythema or exudate. Uvula midline. Airway patent. Tongue does not deviate. NECK: Supple without nuchal rigidity. Shotty anterior cervical lymphadenopathy. No thyromegaly. Cervical spine is nontender. No JVD. HEART: Regular rate and rhythm without murmurs gallops or rubs. LUNGS: Clear to auscultation bilaterally without wheezes, rales or rhonchi. No retractions or accessory muscle use. ABDOMEN: Positive bowel sounds x 4. Normal tympanic percussion. Soft, nontender, without masses or organomegaly. White sign negative. No guarding or rebound tenderness. No CVA tenderness MUSCULOSKELETAL: No muscle atrophy, erythema, or edema noted. NEURO: Patient was alert and oriented to person place and time. Normal sensation to light and sharp touch. No focal neurological deficits. Medical Decision & Procedures Laboratory Results 07/06/18 02:40 Red Blood Count 4.78, Mean Corpuscular Volume 87.4, Mean Corpuscular Hemoglobin 29.7, Mean Corpuscular Hemoglobin Concent 34.0, Mean Platelet Volume 10.3, Neutrophils (%) (Auto) 54.9, Lymphocytes (%) (Auto) 34.4, Monocytes (%) (Auto) 6.2, Eosinophils (%) (Auto) 3.7, Basophils (%) (Auto) 0.4, Neutrophils # (Auto) 6.25, Lymphocytes # (Auto) 3.92, Monocytes # (Auto) 0.71, Eosinophils # (Auto) 0.42, Basophils # (Auto) 0.04 07/06/18 02:40 Test 07/06/18 02:40 07/06/18 02:45 White Blood Count 11.38 K/uL (4.8-10.8) Red Blood Count 4.78 M/uL (4.7-6.1) Hemoglobin 14.2 g/dL (14.0-18.0) Hematocrit 41.8 % (42-52) Mean Corpuscular Volume 87.4 fL (80-100) Mean Corpuscular Hemoglobin 29.7 pg (25-34) Mean Corpuscular Hemoglobin Concent 34.0 g/dl (32-36) Platelet Count 291 K/uL (130-400) Mean Platelet Volume 10.3 fL (7.4-10.4) Neutrophils (%) (Auto) 54.9 % Lymphocytes (%) (Auto) 34.4 % Monocytes (%) (Auto) 6.2 % Eosinophils (%) (Auto) 3.7 % Basophils (%) (Auto) 0.4 % Neutrophils # (Auto) 6.25 K/uL (1.4-6.5) Lymphocytes # (Auto) 3.92 K/uL (1.2-3.4) Monocytes # (Auto) 0.71 K/uL (0.11-0.59) Eosinophils # (Auto) 0.42 K/uL (0-0.5) Basophils # (Auto) 0.04 K/uL (0-0.2) RDW Standard Deviation 44.0 fL (36.4-46.3) RDW Coefficient of Variation 13.7 % (11.5-14.5) Immature Granulocyte % (Auto) 0.4 % Immature Granulocyte # (Auto) 0.04 K/uL (0.00-0.02) Prothrombin Time 10.1 SECONDS (9.0-12.0) Prothromb Time International Ratio 1.0 (0.9-1.1) Activated Partial Thromboplast Time 27.7 SECONDS (21.0-31.0) Partial Thromboplastin Ratio 1.1 Anion Gap 9.0 mmol/L (3-11) Est Creatinine Clear Calc Drug Dose 146.9 ml/min Estimated GFR () 138.0 Estimated GFR (Non- 119.0 BUN/Creatinine Ratio 21.2 (10-20) Calcium Level 8.8 mg/dl (8.5-10.1) Total Bilirubin 0.2 mg/dl (0.2-1) Aspartate Amino Transf (AST/SGOT) 7 U/L (15-37) Alanine Aminotransferase (ALT/SGPT) 19 U/L (12-78) Alkaline Phosphatase 72 U/L (45-117) Total Protein 7.2 gm/dl (6.4-8.2) Albumin 3.8 gm/dl (3.4-5.0) Globulin 3.4 gm/dl (2.5-4.0) Albumin/Globulin Ratio 1.1 (0.9-2) Bedside Lactic Acid Venous 1.56 mmol/L (0.90-1.70) Medications Administered Medications (Trade) Dose Ordered Sig/Mariana Route Start Time Stop Time Status Last Admin Dose Admin Sodium Chloride 1,000 ml @ 999 mls/hr Q1H1M STAT IV 07/06/18 02:14 07/06/18 03:14 DC 07/06/18 02:54 999 MLS/HR Ceftriaxone Sodium (Rocephin Inj) 1 gm NOW STAT IV 07/06/18 02:14 07/06/18 02:22 DC 07/06/18 03:25 1 GM Vancomycin HCl 1800 mg/Sodium Chloride 536 ml @ 200 mls/hr ONE STAT IV 07/06/18 02:14 07/06/18 04:54 DC 07/06/18 02:54 200 MLS/HR Ketorolac Tromethamine (Toradol Inj) 10 mg NOW STAT IV 07/06/18 02:59 07/06/18 03:00 DC 07/06/18 03:21 10 MG Metoclopramide HCl (Reglan Inj) 10 mg NOW STAT IV 07/06/18 02:59 07/06/18 03:00 DC 07/06/18 03:19 10 MG Diphenhydramine HCl (Benadryl Inj) 25 mg NOW STAT IV 07/06/18 02:59 07/06/18 03:00 DC 07/06/18 03:24 25 MG ED Course Prior records reviewed and summarized as above. Triage Nursing notes reviewed. Additional history obtained from family The patient's history was concerning for swelling and redness of the skin from recent neck surgery. Differential diagnosis: Etiologies such as postsurgical infection, cellulitis, abscess, MRSA infection, necrotizing fasciitis, dermatitis, drug eruption, as well as others were entertained.. Physical examination: As above ER treatment provided: Rocephin, vancomycin, Toradol, Benadryl, IV fluids On reassessment the patient felt better. Diagnostics interpreted by me: The labs revealed leukocytosis. Negative lactic acid. Blood cultures pending Imaging studies: CT NECK: Impression: No rim-enhancing fluid collection to suggest an abscess. There is mild soft tissue swelling overlying the left sternocleidomastoid muscle with thickening of the left platysma and fat stranding/effacement of the adjacent fat planes. This could represent postsurgical change. However, cellulitis is not excluded. Postsurgical changes seen related to fusion of C4-C5 and C5-C6. Radiologist: Go Menjivar MD Phone: Consultation: A consultation was placed with Dr Lopez, orthopedics. The case was discussed and diagnostics were reviewed. He recommends antibiotics with outpatient follow-up. This appears to be postsurgical neck infection. Patient started on broad- spectrum antibiotics while in the ER. Orthopedics is consulted and recommends Bactrim and Augmentin with close follow-up in clinic on Sunday. He was medicated as above. He was afebrile and nontoxic appearing. No signs of meningitis. Patient's lactic acid was negative. He was neurovascularly and neurologically intact. He was advised to call orthopedics Sunday morning for follow-up or here in the ER sooner for fevers, spreading infection, worsening signs or symptoms or as needed. By the evaluation outlined above emergent etiologies such as abscess, necrotizing fasciitis, as well as others were deemed relatively unlikely. The pt informed about the findings as listed above. All questions were answered and pleased with the treatment. Return instructions were outlined and the patient was discharged in stable condition. Outpatient prescription management: Augmentin, Bactrim Referral: The patient was referred back to orthopedic spine for follow-up in 2 to 3 days for a recheck of the current condition. Case reviewed with my attending The chart was completed utilizing [employer] Speech voice recognition software. Grammatical errors, random word insertions, pronoun errors, and incomplete sentences are an occassional consequence of this system due to software limitations, ambient noise, and hardware issues. Any formal questions or concerns about the content, text, or information contained within the body of this dictation should be directly addressed to the physician business banking sales assistant for clarification. Medical Decision As above Medication Reconcilliation Current Medication List: was personally reviewed by me Blood Pressure Screening Patient's blood pressure: Normal blood pressure Impression Primary Impression: Cellulitis, neck Additional Impression: Postoperative infection Departure Information Dispostion Home / Self-Care Condition GOOD Referrals No Doctor, Assigned (PCP) Patient Instructions [facility] Additional Instructions DO NOT drive, drink alcohol, operate machinery, or perform dangerous activities today. You were given medications in the ER that can affect your ability to safely function or operate a vehicle. Trimethoprim-Sulfamethoxazole(Bactrim DS): Take one pill twice daily for 10 days for your skin infection. All antibiotics can cause diarrhea. If this occurs and you feel worse or it does not resolve in 1-2 days follow up with your doctor or return to the Emergency Department as this could be signs of serious underlying problems. Any medication can cause an allergic reaction, stop the pills immediately and return to the ER for rash, hives, breathing difficulties, or swelling. Amoxicillin Clavulanate (Augmentin) 875mg: Take one pill twice daily for 10 days for your infection. All antibiotics can cause diarrhea. If this occurs and you feel worse or it does not resolve in 1-2 days follow up with your doctor or return to the Emergency Department as this could be signs of serious underlying problems. Any medication can cause an allergic reaction, stop the pills immediately and return to the ER for rash, hives, breathing difficulties, or swelling. Ibuprofen(Motrin, Advil) may be used for fever or pain. Use 600mg every six hours as needed. Take with food. Avoid using more than 2400mg in a 24 hour period. Do not use 2400mg per day for more than three consecutive days without physician direction. Prolonged inappropriate use can lead to stomach upset or ulcers. (AND/OR) Acetaminophen(Tylenol) may be used for fever or pain. Use 1000mg every six hours as needed. Avoid using more than 3000mg in a 24 hour period. Warm compresses to the affected area 4 times daily for 15-20 minutes. Rest and drink plenty of fluids. Continue current medications. Return to the ER for severe pain, persistent fevers, spreading redness, or any worsening of your condition. Follow up with your orthopedic doctor within 2-3 days for a recheck of the current condition. Call for an appointment. Problem Qualifiers
[2018-07-06] MEDS ORDERED: AMOX875T PO (05:25)
[2018-07-06] MEDS ORDERED: SULF800T23 PO (05:25)
[2018-07-06] MEDS ORDERED: AMOXICIL/CLAVU 875MG HOME PACK PO ONE (05:30)
[2018-07-06] MEDS ORDERED: SEPTRA DS HOME PACK 1 EA VIAL PO ONE (05:30)
[2018-07-06 05:36] VITALS: BP 113/74; PULSE 66; O2SAT 95
--- NOTE | 2018-07-06 07:16 | DIAGNOSTIC IMAGING REPORT ---
CHEST ONE VIEW PORTABLE CLINICAL HISTORY: 32 years-old Male presenting with neck infx. TECHNIQUE: Portable upright AP view of the chest was obtained. COMPARISON: 04/17/2017. FINDINGS: Cardiomediastinal silhouette normal. No focal opacity. No large effusion or pneumothorax. Osseous structures normal. Upper abdomen normal. IMPRESSION: 1. No acute cardiopulmonary disease. Electronically signed by: Mitchel Ross M.D. 07/06/2018 7:15 AM Dictated Date/Time: 07/06/2018 7:14 AM
--- NOTE | 2018-07-06 07:25 | DIAGNOSTIC IMAGING REPORT ---
SOFT TISSUE NECK WITH CLINICAL HISTORY: 32 years-old Male presenting with anterior neck infx, reent OR, ? abscess. TECHNIQUE: Multidetector CT of the neck was performed after the administration of intravenous contrast. IV contrast: 94 mL of Optiray 320. A dose lowering technique was used consistent with the principles of ALARA (as low as reasonably achievable). COMPARISON: CT cervical spine from 02/03/2018. CT DOSE (mGy.cm): The estimated cumulative dose is 544.82 mGy.cm. FINDINGS: Bilingual Manager topogram: The patient is edentulous. Interbody spacers at C4-5 and C5-6. Vasculature patent. Orbits normal. Limited intracranial evaluation normal. Paranasal sinuses and mastoid air cells clear. The patient is edentulous. Temporomandibular joints intact. Postsurgical changes of the cervical spine with interbody spacer at C4-5 and C5-6. Old screw tracks noted in the C4-C6 vertebral bodies. Straightening of normal cervical lordosis. No advanced degenerative change. No osseous erosion. No lymphadenopathy. Parotid, submandibular, and thyroid glands normal. Extensive inflammatory change with skin thickening and subcutaneous fat infiltration along the anterior neck. This extends both superficial and deep to the platysma muscle. This does not extend deep to the strap muscles. Inflammatory change tracks along the anteromedial left sternocleidomastoid muscle. There is a focal 10 mm fluid collection centered in the subcutaneous fat and intimately associated with the overlying cutis at the left paramedian anterior neck (series 3 image 289). This demonstrates subtle rim enhancement, concerning for small abscess. Airway patent. Lung apices clear. IMPRESSION: 1. Findings consistent with cellulitis in the anterior neck which extends deep to the platysma muscle. 10 mm abscess immediately subjacent to the cutis at the left paramedian anterior neck. Electronically signed by: Mitchel Ross M.D. 07/06/2018 7:23 AM Dictated Date/Time: 07/06/2018 7:15 AM
--- NOTE | 2018-07-08 17:34 | Pharmacy Progress Note ---
ED Pharmacist Culture FollowUp Date of Service: Jul 08, 2018. Bactrim and Augmenting given x 10days on discharge for surgical site cellulitis/ drainage. Culture of surface drainage is growing MSSA. Current abx therapy should cover this pathogen well there is room to deescalate to augmentin monotherapy, will discuss with provider.
== END 2018-07-06 05:42 | disposition home or self-care (01) ==
LOC: C.EDB 01:45 → C.EDA 05:42
DX: L03.221 Cellulitis of neck (principal); T81.4XXA Infection following a procedure, initial encounter; R22.1 Localized swelling, mass and lump, neck; F90.9 Attention-deficit hyperactivity disorder, unspecified type; F31.81 Bipolar II disorder; F43.10 Post-traumatic stress disorder, unspecified; J45.909 Unspecified asthma, uncomplicated; Z79.899 Other long term (current) drug therapy; F17.200 Nicotine dependence, unspecified, uncomplicated; Y84.9 Medical procedure, unspecified as the cause of abnormal reaction of the patient, or of later complication, without mention of misadventure at the time of the procedure